=== PATIENT | female | born 1975 | race Caucasian/White ===

== ENCOUNTER 2020-12-07 06:00 | Observation (INO) | payer OTHER, SELFPAY ==
[2020-12-07 06:32] LABS: Absolute Lymphocytes (CBC) 2.4 K/uL (0.7-4.9); Basophils % 0.8 % (0-1.3); Hematocrit 44.1 % (36.0-45.0); Lymphocytes % 17.6 % (15.3-44.8); MPV 9.8 fL (7.6-11.3); RBC Red Blood Cell Count 4.61 M/uL (3.86-4.86)
[2020-12-07 06:46] LABS: Protime INR 1.13
[2020-12-07 06:53] LABS: ALT/SGPT 175 U/L (12-78); AST/SGOT 207 U/L (15-37); Albumin 4.8 g/dL (3.4-5.0); Alkaline Phosphatase 154 U/L (45-117); BUN Blood Urea Nitrogen 30 mg/dL (7-18); Bicarbonate 23 mmol/L (21-32); Bilirubin Direct 0.6 mg/dL (0-0.2); Bilirubin Total 1.6 mg/dL (0.2-1.0); Glucose Level 93 mg/dL (74-106); Potassium 3.2 mmol/L (3.5-5.1); Protein, Total 9.1 g/dL (6.4-8.2); Sodium Level 138 mmol/L (136-145)
[2020-12-07 07:20] LABS: Urine Blood 2+ (Negative); Urine Glucose Negative (Negative); Urine Protein 2+ (Negative); Urine Specific Gravity 1.025 (1.005-1.030)
[2020-12-07 07:33] LABS: Urine Specific Gravity/Preg 1.025 (1.005-1.030)
[2020-12-07 07:44] LABS: Barbiturates NEGATIVE (NEGATIVE); Benzodiazepines NEGATIVE (NEGATIVE); Cocaine NEGATIVE (NEGATIVE); METHAMPHETAM POSITIVE (NEGATIVE); Methadone NEGATIVE (NEGATIVE); Opiates NEGATIVE (NEGATIVE); Phencyclidine NEGATIVE (NEGATIVE); THC Cannibis NEGATIVE (NEGATIVE)
[2020-12-07] MEDS ORDERED: NA CHLORIDE 0.9% 1,000 ML ONE ×3 (07:45→12:48)
[2020-12-07] MEDS ORDERED: NA CHLORIDE 0.9% 0 ML ONE (07:45)
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
--- NOTE | 2020-12-07 08:04 | RAD REPORT ---
EXAM DESCRIPTION: RAD - Forearm Right - 12/07/2020 7:46 am CLINICAL HISTORY: Right arm pain FINDINGS: No fracture is seen.
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
--- NOTE | 2020-12-07 08:07 | RAD REPORT ---
EXAM DESCRIPTION: RAD - Knee Right 3 View - 12/07/2020 7:47 am CLINICAL HISTORY: Right knee pain status post injury FINDINGS: No fracture or dislocation is seen.
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
[2020-12-07] MEDS ORDERED: CEFTRIAXONE/SWI 1gm 1 GM/10 ML SYR ONE (09:23)
[2020-12-07] MEDS ORDERED: LORazepam 2 MG/ML VIAL ONE ×3 (09:23→12:48)
[2020-12-07] MEDS ORDERED: NA CHLORIDE 0.9% 100 ML ONE (09:24)
[2020-12-07] MEDS ORDERED: HYDROCODONE/APAP 5/325 MG TAB PO PRN (12:21)
[2020-12-07] MEDS ORDERED: ACETAMINOPHEN 500 MG TAB PO PRN (12:21)
[2020-12-07] MEDS ORDERED: TRAMADOL HCL 50 MG TAB PO PRN (12:21)
[2020-12-07] MEDS ORDERED: ONDANSETRON 4 MG/2 ML VIAL IV PRN (12:21)
[2020-12-07] MEDS ORDERED: NA CHLORIDE 0.9% 1,000 ML IV SCH ×2 (12:21→14:06)
[2020-12-07] MEDS ORDERED: LORazepam 2 MG/ML VIAL IV PRN ×2 (12:21→12:24)
[2020-12-07 12:50] VITALS: BMI 25.1
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
[2020-12-07] MEDS ORDERED: POTASSIUM CL 40 MEQ in NA CHLORIDE 0.9% 500 ML IV SCH (15:00)
[2020-12-07 17:00] VITALS: TEMP 97.7
[2020-12-07 17:56] LABS: Potassium 3.2 mmol/L (3.5-5.1)
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
--- NOTE | 2020-12-07 20:00 | RAD REPORT ---
EXAM DESCRIPTION: US - Abdomen Exam Complete - 12/07/2020 7:33 pm CLINICAL HISTORY: Abdominal pain COMPARISON: none FINDINGS: The liver has a mildly nodular contour. Left lobe is prominent. This may indicate cirrhosi s. Portions of the liver has an increased echotexture consistent with fatty infiltration Cholecystectomy. The biliary tree is normal caliber. The pancreas is normal in size and echotexture The right kidney measures 10 centimeters with a normal echotexture. The left kidney measures 10 centimeters with a normal echotexture. The spleen measures 10 centimeters. The abdominal aorta and inferior vena cava appear unremarkable IMPRESSION: Increased hepatic echotexture consistent with fatty infiltration. Cirrhosis of the liver suspected
[2020-12-07 20:51] VITALS: O2SAT 99
[2020-12-07] MEDS ORDERED: HEPARIN 5000 UNIT/ML 1 ML VIAL SQ SCH (21:00)
[2020-12-07] MEDS ORDERED: FAMOTIDINE 20 MG TAB PO SCH (21:00)
[2020-12-07 22:33] VITALS: BP 117/69
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
[2020-12-08] MEDS ORDERED: FOLIC ACID 1 MG TABLET PO SCH (09:00)
[2020-12-08] MEDS ORDERED: THIAMINE HCL 100 MG TABLET PO SCH (09:00)
--- NOTE | 2020-12-08 10:48 | EKG ---
Test Date: 2020-12-07 Test Time: 06:09:31 Electrical Installation Supervisor: RR MEASUREMENT RESULTS: Intervals: Rate: 108 [place]: 142 QRSD: 80 QT: 358 QTc: 479 [place]: P: 74 [place]: 142 QRS: 78 T: 76 INTERPRETIVE STATEMENTS: Sinus tachycardia Right atrial enlargement Borderline ECG Compared to ECG 01/29/2017 13:55:25 Atrial abnormality now present Sinus rhythm no longer present Electronically Signed On 12-08-20 10:46:56 CDT by Cassius Walls
[2020-12-11 03:09] LABS: HBsAG Nonreactive (Nonreactive)
[2020-12-11 14:32] LABS: HIV AG/AB 4TH GEN Non-reactive (Non-reactive)
== END 2020-12-07 21:40 | disposition left against medical advice (07) ==
LOC: ER 06:00 → ERHOLD 10:24 → 4TH 14:02
PROVIDERS: ADMIT Family Medicine; ATTEND Family Medicine
DX: T14.8XXA Other injury of unspecified body region, initial encounter (principal); N17.9 Acute kidney failure, unspecified; M62.82 Rhabdomyolysis; G89.29 Other chronic pain; F10.10 Alcohol abuse, uncomplicated; F15.129 Other stimulant abuse with intoxication, unspecified; Z20.822 Contact with and (suspected) exposure to COVID-19; Y04.8XXA Assault by other bodily force, initial encounter; Y92.009 Unspecified place in unspecified non-institutional (private) residence as the place of occurrence of the external cause; Z53.29 Procedure and treatment not carried out because of patient's decision for other reasons; M54.9 Dorsalgia, unspecified; E87.6 Hypokalemia; E83.52 Hypercalcemia; F17.210 Nicotine dependence, cigarettes, uncomplicated
CPT/HCPCS: 36415; 70450; 71250; 72125; 76700; 80048; 80074; 80076; 80307; 80320; 80329; 81003; 81025; 82140; 82550; 83690; 85025; 85302; 85610; 85730; 87389; 87522; 93005; 96361; 96365; 96375; 99285; G0390; J0696; J3480; J7030; J7040; U0003

== ENCOUNTER 2022-05-01 06:29 | Emergency (ER) | payer SELFPAY ==
[2022-05-01 08:54] LABS: Urine Blood Negative (Negative); Urine Glucose Negative (Negative); Urine Protein Negative (Negative)
[2022-05-01 09:03] LABS: Urine Mucus Slight /HPF (None Seen); Urine RBC <5 /HPF (None Seen)
[2022-05-01 09:28] LABS: Barbiturates NEGATIVE (NEGATIVE); Benzodiazepines NEGATIVE (NEGATIVE); Cocaine NEGATIVE (NEGATIVE); METHAMPHETAM POSITIVE (NEGATIVE); Methadone NEGATIVE (NEGATIVE); Opiates NEGATIVE (NEGATIVE); Phencyclidine NEGATIVE (NEGATIVE); THC Cannibis NEGATIVE (NEGATIVE)
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
[2022-05-01 10:13] VITALS: O2SAT 100
[2022-05-01 10:16] VITALS: TEMP 98
[2022-05-01 10:17] VITALS: BP 142/86
--- NOTE | 2022-05-02 16:54 | EKG ---
Test Date: 2022-05-01 Test Time: 06:50:46 Assessment Manager: KARINA MEASUREMENT RESULTS: Intervals: Rate: 93 [place]: 142 QRSD: 84 QT: 392 QTc: 487 [place]: P: 69 NE: 142 QRS: 84 T: 74 INTERPRETIVE STATEMENTS: Normal sinus rhythm with sinus arrhythmia Prolonged QT Abnormal ECG Compared to ECG 12/07/2020 06:09:31 Prolonged QT interval now present Sinus tachycardia no longer present Atrial abnormality no longer present Electronically Signed On 05-02-22 16:53:34 CDT by Rashel Keys
== END 2022-05-01 09:55 | disposition home or self-care (01) ==
LOC: ER 06:29
DX: F23 Brief psychotic disorder (principal); F15.159 Other stimulant abuse with stimulant-induced psychotic disorder, unspecified; F17.210 Nicotine dependence, cigarettes, uncomplicated
CPT/HCPCS: 80307; 81003; 81015; 93005; 99285

== ENCOUNTER 2023-02-20 22:04 | Emergency (ER) | payer OTHER ==
--- OUTSIDE RECORDS SUMMARY | 2023-02-20 22:07 | XMS REPORT | Continuity of Care Document ---
:1975 Author Organization [facility] t Address [address] [place] [address] Care Team Providers Name Role Phone RICARDA SMITH Attending Clinician Unavailable BRANDY INIGUEZ Attending Clinician Unavailable Payers Payer Name Policy Type Policy Number Effective Date Expiration Date [facility] [id number] 2022 [address] [employer] 00:00:00 00:00:00 Problems This patient has no known problems. Allergies, Adverse Reactions, Alerts This patient has no known allergies or adverse reactions. Medications This patient has no known medications. Procedures This patient has no known procedures. Encounters Start End Encounter Admission Attending Care Care Encounter Source Date/Time Date/Time Type Type Clinicians Facility Department ID 2022-09-30 2022-10-01 Emergency [facility]AH [facility] [id number] [place] 04:41:00 08:12:00 RICARDA [facility] 2022-09-30 2022-09-30 [facility] [id number] 54 [place] 11:00:32 11:05:55 BRANDY [facility] 2022-09-30 2022-09-30 [facility] [id number] 34 [place] 08:34:42 08[facility]34:[facility] This patient has no known results.
[2023-02-20] MEDS ORDERED: MORPHINE 2 MG/ML SYR ONE (22:51)
[2023-02-20] MEDS ORDERED: ONDANSETRON 4 MG/2 ML VIAL ONE (22:52)
[2023-02-20 23:11] LABS: Absolute Lymphocytes (CBC) 1.6 K/uL (0.7-4.9); Lymphocytes % 25.5 % (15.3-44.8); MCV 99.7 fL (80-100); Platelets 88 thou/uL (152-406); RBC Red Blood Cell Count 3.51 M/uL (3.86-4.86)
[2023-02-20 23:20] LABS: Albumin 3.5 g/dL (3.4-5.0); Bilirubin Total 1.4 mg/dL (0.2-1.0)
[2023-02-20 23:34] LABS: Specific Gravity 1.022 (1.005-1.030); Urine Bacteria None Seen /HPF (<20); Urine Bilirubin NEGATIVE (Negative); Urine Blood Trace (Negative); Urine Clarity Extremely Turbid (Clear); Urine Color Yellow (Yellow); Urine Crystals Unidentified Few /HPF (None Seen); Urine Glucose NEGATIVE (Negative); Urine Mucus Slight /HPF (None Seen); Urine Protein TRACE (Negative); Urine RBC <5 /HPF (None Seen); Urine Urobilinogen Normal (Normal); Urine WBC Clump Rare /HPF (None Seen); Urine pH 5.5 (5.0-7.0)
[2023-02-20] MEDS ORDERED: POTASSIUM 25 MEQ EFFERV TAB ONE (23:55)
--- NOTE | 2023-02-21 01:27 | EDPHYS ---
Physician Documentation [facility] Name: Geraldine Araiza Age: 47 yrs Sex: Female : 1975 Arrival Date: 02/20/2023 Time: 22:04 Bed Treatment Private MD: ED Physician Araseli Burnham HPI: 02/20 23:38 This 47 yrs old Female presents to ER via EMS with complaints of flank pain. sb4 02/21 15:48 patient states she has some right sided flank pain and dysuria. she does have a history sb4 of kidney stones and wanted to be evaluated to rule it out. she states the flank pain could be a muscle strain and she was working outside all day yesterday. she denies any hematuria, nausea, vomiting, abdominal pain, fever. movement aggravates the pain, remaining still alleviates the pain. Historical: - Allergies: 02/20 22:20 Toradol; kl - PSHx: 22:22 Total abdominal hysterectomy; Cholecystectomy; Appendectomy; kl - Immunization history:: Adult Immunizations not immunized. ROS: 02/21 15:48 Constitutional: Negative for fever, chills, and weight loss. sb4 Back: Positive for flank pain, on the right. : Positive for burning with urination. All other systems are negative. Exam: 15:48 Head/Face: Normocephalic, atraumatic. Cardiovascular: Regular rate and rhythm with a sb4 normal S1 and S2. Respiratory: Lungs have equal breath sounds bilaterally, clear to auscultation and percussion. No rales, rhonchi or wheezes noted. No increased work of breathing, no retractions or nasal flaring. Abdomen/GI: Soft, non-tender, no distension. Skin: Warm, dry with normal turgor. Normal color with no rashes, no lesions, and no evidence of cellulitis. MS/ Extremity: Pulses equal, no cyanosis. Neurovascular intact. Full, normal range of motion. 15:48 Constitutional: The patient appears alert, awake, uncomfortable, intoxicated Vital Signs: 02/20 22:33 BP 140 / 86; Pulse 82; Resp 18; Temp 98.6(O); Pulse Ox 98% on R/A; Weight 63.5 kg; kl Height 5 ft. 6 in. ; Pain /10; 02/21 01:04 BP 128 / 77; Pulse 80; Resp 18 S; Pulse Ox 97% on R/A; kl 02:08 BP 127 / 53; kl 02:09 Pulse 94; Resp 20; Pulse Ox 98% on R/A; kl 02/20 22:33 Body Mass Index 22.60 (63.50 kg, 167.64 cm) kl 02/20 22:33 Pain Scale: Adult kl MDM: 02/20 22:16 Patient medically screened. sb4 02/21 15:48 Differential Diagnosis nephrolithiasis, uti, pyelonephritis, muscle strain. Data sb4 reviewed: vital signs, nurses notes, lab test result(s), radiologic studies, and as a result, I will discharge patient. Counseling: I had a detailed discussion with the patient and/or guardian regarding: the historical points, exam findings, and any diagnostic results supporting the discharge/admit diagnosis, the presence of at least one elevated blood pressure reading (>120/80) during this emergency department visit, lab results, radiology results, to return to the emergency department if symptoms worsen or persist or if there are any questions or concerns that arise at home. Special discussion: I discussed with the patient/guardian in detail that at this point there is no indication for admission to the hospital. It is understood, however, that if the symptoms persist or worsen the patient needs to return immediately for re-evaluation. ED course: labs reveal mildly elevated LFTs. she does have a history of hepatitis C and methamphetamine abuse. she has no abdominal tenderness on exam and CT did not reveal any abnormalities. patient can be safely discharged home to follow up for repeat labs in a few weeks. 02/20 22:18 Order name: CBC with Diff; Complete Time: 23:14 sb4 02/20 22:18 Order name: CMP; Complete Time: 23:21 sb4 02/20 22:18 Order name: Lipase; Complete Time: 23:21 sb4 02/20 22:58 Order name: Urinalysis w/ reflexes; Complete Time: 23:37 kl 02/20 23:39 Order name: Urine Culture EDCA 02/20 23:48 Order name: Abdomen EDCA 02/20 22:18 Order name: IV Saline Lock; Complete Time: 22:37 sb4 02/20 22:18 Order name: Labs collected and sent; Complete Time: 23:37 sb4 Administered Medications: 02/20 22:37 Drug: NS 0.9% IV 1000 ml Route: IV; Rate: 1 bolus; Site: right antecubital; kl 22:45 Drug: morphine IVP or IV 4 mg Route: IVP; Infused Over: 4 mins; Site: right antecubital;kl 22:49 Drug: Ondansetron IVP 4 mg Route: IVP; Site: right antecubital; kl 23:49 Drug: Potassium PO Effervescent Tablet 50 mEq Route: PO; kl 02/21 00:57 Drug: NS 0.9% IV 1000 ml Route: IV; Rate: 1 bolus; Site: right antecubital; Disposition Summary: 02/21/23 01:26 Discharge Ordered Location: Home sb4 Problem: new sb4 Symptoms: are unchanged sb4 Condition: Stable sb4 Diagnosis - UTI/ Urinary tract infection, site not specified sb4 Followup: sb4 - With: Private Physician - When: As needed - Reason: Recheck today's complaints, Continuance of care, Re-evaluation by your physician Discharge Instructions: - Discharge Summary Sheet sb4 - Urinary Tract Infection, Adult, [id number] sb4 Forms: - Medication Reconciliation Form sb4 - Thank You Letter sb4 - Antibiotic Education sb4 - Prescription Opioid Use sb4 - Patient Portal Instructions sb4 - Leadership Thank You Letter sb4 Prescriptions: - Bactrim DS 800-160 mg Oral Tablet - take 1 tablet by ORAL route every 12 hours for 10 days; 20 tablet; Refills: 0, sb4 Product Selection Permitted Signatures: Dispatcher [employer] Heather Casey RN RN Sheryl Ma PA-C PACindy sb4 Corrections: (The following items were deleted from the chart) 02/20 22:21 22:20 Allergies: NKA; kl kl 22:21 22:20 PMHx: bone spurt; kl kl 23:48 22:18 Abdomen Pelvis W Con+CT.RAD.BRZ ordered. EDMS EDMS
--- NOTE | 2023-02-21 01:27 | ER ---
Nurse's Notes [facility] Name: Geraldine Araiza Age: 47 yrs Sex: Female : 1975 Arrival Date: 02/20/2023 Time: 22:04 Bed Treatment Private MD: Diagnosis: UTI/ Urinary tract infection, site not specified Presentation: 02/20 22:33 Chief complaint: Patient states: right flank pain began approx 2 PM reports burning kl with urination. Coronavirus screen: Vaccine status: Patient reports being unvaccinated. Ebola Screen: Patient negative for fever greater than or equal to 101.5 degrees Fahrenheit, and additional compatible Ebola Virus Disease symptoms. Initial Sepsis Screen: Does the patient meet any 2 criteria? No. Patient's initial sepsis screen is negative. Does the patient have a suspected source of infection? No. Patient's initial sepsis screen is negative. Risk Assessment: Do you want to hurt yourself or someone else? Patient reports no desire to harm self or others. 22:33 Method Of Arrival: EMS: [facility] 22:33 Acuity: [place] 3 kl Triage Assessment: 22:34 General: Appears in no apparent distress. comfortable, Behavior is calm, cooperative. kl Pain: Complains of pain in right flank. EENT: No deficits noted. Neuro: No deficits noted. Cardiovascular: No deficits noted. Respiratory: No deficits noted. GI: No deficits noted. No signs and/or symptoms were reported involving the gastrointestinal system. : Reports burning with urination. Derm: No deficits noted. No signs and/or symptoms reported regarding the dermatologic system. Musculoskeletal: No deficits noted. No signs and/or symptoms reported regarding the musculoskeletal system. Historical: - Allergies: 22:20 Toradol; kl - PSHx: 22:22 Total abdominal hysterectomy; Cholecystectomy; Appendectomy; kl - Immunization history:: Adult Immunizations not immunized. Screenin:35 [facility] ED Fall Risk Assessment (Adult) History of falling in the last 3 months, kl including since admission No falls in past 3 months (0 pts) Confusion or Disorientation No (0 pts) Intoxicated or Sedated No (0 pts) Impaired Gait No (0 pts) Mobility Assist Device Used No (0 pt) Altered Elimination No (0 pt) Score/Fall Risk Level 0 - 2 = Low Risk Oriented to surroundings, Maintained a safe environment. Abuse screen: Denies threats or abuse. Nutritional screening: No deficits noted. Tuberculosis screening: No symptoms or risk factors identified. Assessment: 22:35 Reassessment: see triage. 02/21 02:09 Reassessment: Patient appears in no apparent distress at this time. Patient denies pain kl at this time. Patient states feeling better. Patient states symptoms have improved. Vital Signs: 02/20 22:33 BP 140 / 86; Pulse 82; Resp 18; Temp 98.6(O); Pulse Ox 98% on R/A; Weight 63.5 kg; kl Height 5 ft. 6 in. ; Pain 6/; 02/21 01:04 BP 128 / 77; Pulse 80; Resp 18 S; Pulse Ox 97% on R/A; kl 02:08 BP 127 / 53; kl 02:09 Pulse 94; Resp 20; Pulse Ox 98% on R/A; kl 02/20 22:33 Body Mass Index 22.60 (63.50 kg, 167.64 cm) kl 02/20 22:33 Pain Scale: Adult kl ED Course: 02/20 22:16 Patient arrived in ED. sb4 22:16 Sheryl Cano PA-C is PHCP. sb4 22:16 Araseli Burnham MD is Attending Physician. sb4 22:34 Triage completed. kl 22:36 Patient has correct armband on for positive identification. Placed in gown. Call light kl in reach. Side rails up X2. Door closed. Noise minimized. Warm blanket given. 22:36 No provider procedures requiring assistance completed. Maintain EMS IV. Dressing kl intact. Good blood return noted. Site clean \T\ dry. Gauge \T\ site: 20 right ac. 22:49 CBC with Diff Sent. kl 22:49 CMP Sent. kl 22:49 Lipase Sent. kl 23:17 Urinalysis w/ reflexes Sent. kl 02/21 00:24 Abdomen In Process Unspecified. EDMS 01:03 No apparent distress. Resting quietly. Appears to be sleeping. kl 02:09 IV discontinued, intact, bleeding controlled, No redness/swelling at site. Pressure kl dressing applied. Administered Medications: 02/20 22:37 Drug: NS 0.9% IV 1000 ml Route: IV; Rate: 1 bolus; Site: right antecubital; kl 22:45 Drug: morphine IVP or IV 4 mg Route: IVP; Infused Over: 4 mins; Site: right antecubital; 22:49 Drug: Ondansetron IVP 4 mg Route: IVP; Site: right antecubital; kl 23:49 Drug: Potassium PO Effervescent Tablet 50 mEq Route: PO; kl 02/21 00:57 Drug: NS 0.9% IV 1000 ml Route: IV; Rate: 1 bolus; Site: right antecubital; Medication: 02/20 22:35 VIS not applicable for this client. kl Outcome: 02/21 01:26 Discharge ordered by MD. dewey 02:09 Discharged to home ambulatory. kl 02:09 Condition: improved 02:09 Discharge instructions given to patient, Instructed on discharge instructions, follow up and referral plans. medication usage, Demonstrated understanding of instructions, follow-up care, medications, Prescriptions given X 1. 02:10 Patient left the ED. Signatures: Dispatcher [employer] EDHeather Pope RN RN kl Brown, Sophia PA-C TRAVIS sellers4 Corrections: (The following items were deleted from the chart) 02/20 22:21 22:20 Allergies: NKA; kl kl 22:21 22:20 PMHx: bone spurt; kl kl
[2023-02-21 02:15] VITALS: TEMP 98.6
[2023-02-21 02:17] VITALS: BP 127/53
[2023-02-21 02:18] VITALS: O2SAT 98
--- NOTE | 2023-02-22 12:38 | RAD REPORT ---
EXAM DESCRIPTION: CT - Abdomen Pelvis Wo Contrast - 02/21/2023 7:05 am CLINICAL HISTORY: ABD PAIN TECHNIQUE: Axial computed tomography images of the abdomen and pelvis without intravenous contrast. Sagittal and coronal reformatted images were created and reviewed. This CT exam was performed usi ng one or more of the following dose reduction techniques: automated exposure control, adjustment o f the mA and/or kV according to patient size, and/or use of iterative reconstruction technique. COMPARISON: CT Abdomen Pelvis dated 12/07/2020 FINDINGS: Lung bases: Minimal bibasilar subsegmental atelectasis/pleural parenchymal scar. ABDOMEN: Liver: The liver is enlarged with surface contour nodularity compatible with cirrhosis. Gallbladder and bile ducts: Prior cholecystectomy. Mild ductal dilation. Pancreas: Unremarkable. No ductal dilation. Spleen: Unremarkable. No splenomegaly. Adrenals: Unremarkable. No mass. Kidneys and ureters: Unremarkable. No obstructing stones. No hydronephrosis. Stomach and bowel: Small and large bowel air-fluid levels. No obstruction. No appreciable mucos al thickening. PELVIS: Appendix: There has been an appendectomy. Bladder: Unremarkable. No stones. Reproductive: There has been a hysterectomy. No adnexal cysts or masses are identified. ABDOMEN and PELVIS: Intraperitoneal space: Unremarkable. No free air. No significant fluid collection. Bones/joints: Mild multilevel spondylosis. No acute fracture. No dislocation. Soft tissues: Unremarkable. Vasculature: Unremarkable. No abdominal aortic aneurysm. Lymph nodes: Unremarkable. No enlarged lymph nodes. IMPRESSION: 1. Nonspecific small and large bowel air-fluid levels which can be seen in the clinica l setting of diarrhea. 2. Other findings as above. Electronically signed by: Jackie Lind MD 02/21/2023 1:17 AM CDT Due to temporary technical issues with the PACS/Fluency reporting system, reports are being signed by the in house radiologist without review as a courtesy to ensure prompt reporting. The interpreting r adiologist is fully responsible for the content of the report.
== END 2023-02-21 02:10 | disposition home or self-care (01) ==
LOC: ER 22:04
DX: N39.0 Urinary tract infection, site not specified (principal); Z88.5 Allergy status to narcotic agent
CPT/HCPCS: 87088; 85025; 81001; 87086; 36415; 83690; 80053; 74176; 96375; 96374; 99284; J2270; J2405

== ENCOUNTER 2023-05-17 14:03 | Emergency (ER) | payer OTHER ==
--- OUTSIDE RECORDS SUMMARY | 2023-05-17 14:05 | XMS REPORT | Continuity of Care Document ---
:1975 Author Organization [facility] t Address [address] [place] [address] Care Team Providers Name Role Phone RICARDA SMITH Attending Clinician Unavailable BRANDY INIGUEZ Attending Clinician Unavailable Payers Payer Name Policy Type Policy Number Effective Date Expiration Date [facility] [id number] 2022 [address] [employer] 00:00:00 00:00:00 Problems This patient has no known problems. Allergies, Adverse Reactions, Alerts This patient has no known allergies or adverse reactions. Medications This patient has no known medications. Procedures This patient has no known procedures. Encounters Start End Encounter Admission Attending Care Care Encounter Source Date/Time Date/Time Type Type Clinicians Facility Department ID 2022-09-30 2022-10-01 Emergency SARAH [facility] [id number] [place] 04:41:00 08:12:00 RICARDA [facility] 2022-09-30 2022-09-30 [facility] [id number] [place] 11:00:32 11:05:55 BRANDY [facility] 2022-09-30 2022-09-30 [facility] [id number] [place] 08:34:42 [facility] This patient has no known results.
--- NOTE | 2023-05-17 15:43 | RAD REPORT ---
EXAM DESCRIPTION: CT - CTFB CLINICAL HISTORY: Trauma;Swelling COMPARISON: No comparisons TECHNIQUE: Axial thin cut noncontrast CT images of the face were obtained with sagittal and coronal reconstruction images. All CT scans are performed using dose optimization technique as appropriate and may include automated exposure control or mA/KV adjustment according to patient size. FINDINGS: Left orbital floor comminuted fracture, measuring 12 millimeter in transverse dimension an d 18 millimeter in AP dimension. A fracture fragment abuts the inferior rectus muscle inferiorly with some gas locules extending along the retro coronal fat space, however without significant thickening or contour abnormality of the inferior rectus muscle. Left infraorbital soft tissue swelling and gas without evidence of hematoma. No other acute facial fractures.The mandible is intact. The globes and orbital contents on the right are unremarkable. Left maxillary sinus air-fluid level with hyperdense contents suggesting layering hemorrhage. IMPRESSION: Left orbital blow-out fracture as detailed above. A small fracture fragment abuts the inferior rectus muscle inferiorly with no other evidence of conto ur abnormality or asymmetric thickening of the muscle to suggest muscle entrapment. Small gas locules extending along the left retro conal fat space. No evidence of hematoma. Left maxillary sinus hemorrhage with air-fluid level. The findings were communicated to Elba Aguiar on 05/17/2023 at 15:39 hours.
--- NOTE | 2023-05-17 15:52 | EDPHYS ---
Physician Documentation [facility] Name: Geraldine Araiza Age: 47 yrs Sex: Female : 1975 Arrival Date: 05/17/2023 Time: 14:03 Bed 11 Private MD: ED Physician Zohaib Padron HPI: 05/17 14:10 This 47 yrs old Female presents to ER via Ambulatory with complaints of Fall Injury. jh7 14:10 Details of fall: The patient fell from an upright position, while walking. Onset: The jh7 symptoms/episode began/occurred 2 day(s) ago. Associated injuries: The patient sustained face. Ending on her [id number] female tripped over her dog 2 days ago. She denies LOC and is not on blood thinners. Complains of a nosebleed from the left nostril with bruising under her left eye.. Historical: - Allergies: 14:12 Toradol; iw - PSHx: 14:12 Appendectomy; Cholecystectomy; Total abdominal hysterectomy; iw ROS: 14:10 Constitutional: Negative for fever, chills, and weight loss, Eyes: Negative for injury, jh7 pain, redness, and discharge, 14:10 Neck: Negative for injury, pain, and swelling, Cardiovascular: Negative for chest pain, palpitations, and edema, Respiratory: Negative for shortness of breath, cough, wheezing, and pleuritic chest pain, Abdomen/GI: Negative for abdominal pain, nausea, vomiting, diarrhea, and constipation, Back: Negative for injury and pain, MS/Extremity: Negative for injury and deformity, Skin: Negative for injury, rash, and discoloration, Neuro: Negative for headache, weakness, numbness, tingling, and seizure, 14:10 ENT: Positive for nose bleed, 14:10 All other systems are negative, Exam: 14:10 Constitutional: This is a well developed, well nourished patient who is awake, alert, jh7 and in no acute distress. Eyes: Pupils equal round and reactive to light, extra-ocular motions intact. Lids and lashes normal. Conjunctiva and sclera are non-icteric and not injected. Cornea within normal limits. Periorbital areas with no swelling, redness, or edema. ENT: Nares patent. No nasal discharge, no septal abnormalities noted. Tympanic membranes are normal and external auditory canals are clear. Oropharynx with no redness, swelling, or masses, exudates, or evidence of obstruction, uvula midline. Mucous membranes moist. Neck: Trachea midline, no thyromegaly or masses palpated, and no cervical lymphadenopathy. Supple, full range of motion without nuchal rigidity, or vertebral point tenderness. No Meningismus. Cardiovascular: Regular rate and rhythm with a normal S1 and S2. No gallops, murmurs, or rubs. Normal PMI, no JVD. No pulse deficits. Respiratory: Lungs have equal breath sounds bilaterally, clear to auscultation and percussion. No rales, rhonchi or wheezes noted. No increased work of breathing, no retractions or nasal flaring. Back: No spinal tenderness. No costovertebral tenderness. Full range of motion. Skin: Warm, dry with normal turgor. Normal color with no rashes, no lesions, and no evidence of cellulitis. MS/ Extremity: Pulses equal, no cyanosis. Neurovascular intact. Full, normal range of motion. Neuro: Awake and alert, GCS 15, oriented to person, place, time, and situation. Motor strength 5/5 in all extremities. Sensory grossly intact. Normal gait. 14:10 Head/face: Noted is contusion, of the left eye, Vital Signs: 14:10 BP 123 / 96; Pulse 87; Resp 16; Temp 98.3; Pulse Ox 98% on R/A; iw 15:37 BP 133 / 82; Pulse 77; Resp 16 S; Pulse Ox 98% on R/A; kc6 Visual Acuity: 15:49 Left Eye Visual acuity 20/70, Pupil size 3 mm, Normal, React To Light, Reactive To kc6 Accomodation; Right Eye Visual acuity 20/40, Pupil size 3 mm, Normal, React To Light, Reactive To Accomodation; Both Eyes Visual acuity 20/50; Without Lenses; MDM: 14:09 Patient medically screened. [facility] 15:50 Differential diagnosis: closed head injury, contusion, Facial fracture, orbital jh7 fracture, periorbital contusion. Data reviewed: vital signs, nurses notes, radiologic studies, CT scan. I considered the following discharge prescriptions or medication management in the emergency department Medications were administered in the Emergency Department. See MAR. Counseling: I had a detailed discussion with the patient and/or guardian regarding the historical points, exam findings, and any diagnostic results supporting the discharge/admit diagnosis, the need for outpatient follow up, an ENT specialist, an oral maxilofacial specialist, to return to the emergency department if symptoms worsen or persist or if there are any questions or concerns that arise at home. 05/17 14:13 Order name: CT Facial Bones W/O Con; Complete Time: 15:47 [facility] 05/17 15:46 Order name: Visual Acuity; Complete Time: 15:50 [facility] Administered Medications: No medications were administered Disposition Summary: 05/17/23 15:51 Discharge Ordered Notes: Location: Home [facility] Problem: new [facility] Symptoms: have improved [facility] Condition: Stable [facility] Diagnosis - Left orbital blowout fracture [facility] Followup: [facility] - With: Yanet Squires MD - When: 2 - 3 days - Reason: Recheck today's complaints Discharge Instructions: - Discharge Summary Sheet [facility] - Orbital Fracture [facility] Forms: - Medication Reconciliation Form [facility] - Thank You Letter [facility] - Antibiotic Education [facility] - Prescription Opioid Use [facility] - Patient Portal Instructions [facility] - Leadership Thank You Letter [facility] Prescriptions: - Augmentin 875-125 mg Oral tablet - take 1 tablet ORAL route every 12 hours for 7 days; 14 tablet; Refills: 0, [facility] Product Selection Permitted - Tramadol 50 mg Oral Tablet - take 1 tablet ORAL route every 8 hours as needed; 12 tablet; Refills: 0, [facility] Product Selection Permitted Addendum: 05/22/2023 07:49 I was immediately available for consultation during this patient's visit. I did not e c2 personally see the patient or guide the patient's care.. Signatures: Dispatcher [employer] Carlyn Flores, RN RN Elba Shore, ACCOUNT MANAGER RELIEF ACCOUNT MANAGER RELIEF 7 Zohaib Padron MD MD ec2
--- NOTE | 2023-05-17 15:52 | ER ---
Nurse's Notes [facility] [place] Name: Geraldine Araiza Age: 47 yrs Sex: Female : 1975 Arrival Date: 05/17/2023 Time: 14:03 Bed 11 Private MD: Diagnosis: Left orbital blowout fracture Presentation: 05/17 14:10 Chief complaint: Patient states: tripped over dog a couple days ago, fell face first iw into concrete, now when i blow my nose there's blood and it swells up under my eye , fell on left side of face. Coronavirus screen: At this time, the client does not indicate any symptoms associated with coronavirus-19. Ebola Screen: Patient negative for fever greater than or equal to 101.5 degrees Fahrenheit, and additional compatible Ebola Virus Disease symptoms Patient denies exposure to infectious person. Patient denies travel to an Ebola-affected area in the 21 days before illness onset. No symptoms or risks identified at this time. Initial Sepsis Screen: Does the patient meet any 2 criteria? No. Patient's initial sepsis screen is negative. Does the patient have a suspected source of infection? No. Patient's initial sepsis screen is negative. Risk Assessment: Do you want to hurt yourself or someone else? Patient reports no desire to harm self or others. Onset of symptoms was May 15, 2023. 14:10 Method Of Arrival: Ambulatory 14:10 Acuity: GERHARD 3 iw Historical: - Allergies: 14:12 Toradol; iw - PSHx: 14:12 Appendectomy; Cholecystectomy; Total abdominal hysterectomy; iw Screenin:22 [facility] ED Fall Risk Assessment (Adult) History of falling in the last 3 months, kc6 including since admission Yes- single mechanical fall (1 pt) Confusion or Disorientation No (0 pts) Intoxicated or Sedated No (0 pts) Impaired Gait No (0 pts) Mobility Assist Device Used No (0 pt) Altered Elimination No (0 pt) Score/Fall Risk Level 0 - 2 = Low Risk. Abuse screen: Denies threats or abuse. Denies injuries from another. Nutritional screening: No deficits noted. Tuberculosis screening: No symptoms or risk factors identified. Assessment: 14:23 General: Appears in no apparent distress. comfortable, Behavior is calm, cooperative, kc6 appropriate for age. Neuro: Level of Consciousness is awake, alert, obeys commands, Oriented to person, place, time, situation, Appropriate for age. Cardiovascular: Denies chest pain, Capillary refill < 3 seconds. Respiratory: Airway is patent Trachea midline Respiratory effort is even, unlabored, Respiratory pattern is regular, symmetrical, Denies shortness of breath. Derm: Skin is intact, is healthy with good turgor, Skin is pink, warm \T\ dry. 15:23 Reassessment: Patient appears in no apparent distress at this time. No changes from kc6 previously documented assessment. Patient and/or family updated on plan of care and expected duration. Pain level reassessed. Patient is alert, oriented x 3, equal unlabored respirations, skin warm/dry/pink. Vital Signs: 14:10 BP 123 / 96; Pulse 87; Resp 16; Temp 98.3; Pulse Ox 98% on R/A; iw 15:37 BP 133 / 82; Pulse 77; Resp 16 S; Pulse Ox 98% on R/A; kc6 Visual Acuity: 15:49 Left Eye Visual acuity 20/70, Pupil size 3 mm, Normal, React To Light, Reactive To kc6 Accomodation; Right Eye Visual acuity 20/40, Pupil size 3 mm, Normal, React To Light, Reactive To Accomodation; Both Eyes Visual acuity 20/50; Without Lenses; ED Course: 14:05 Patient arrived in ED. mg5 14:09 Elba Boo FNP [facility]. jh7 14:09 Zohaib Padron MD is Attending Physician. jh7 14:12 Triage completed. iw 14:12 Arm band placed on. iw 14:22 Brianda Olivarez, TEVIN is Primary Nurse. kc6 14:23 CT Facial Bones W/O Con In Process Unspecified. EDMS 14:23 Patient has correct armband on for positive identification. Bed in low position. Call kc6 light in reach. Side rails up X2. Adult w/ patient. Client placed on continuous cardiac and pulse oximetry monitoring. NIBP monitoring applied. 14:23 Patient maintains SpO2 saturation greater than 95% on room air. kc6 15:51 Yanet Squires MD is Referral Physician. 7 16:04 No provider procedures requiring assistance completed. Patient did not have IV access kc6 during this emergency room visit. Administered Medications: No medications were administered Medication: 16:04 VIS not applicable for this client. kc6 Outcome: 15:51 Discharge ordered by . aury 16:04 Discharged to home ambulatory, with significant other, kc6 16:04 Condition: good 16:04 Discharge instructions given to patient, Instructed on discharge instructions, follow up and referral plans. medication usage, Demonstrated understanding of instructions, follow-up care, medications, Prescriptions given X 2, 16:04 Patient left the ED. kc6 Signatures: Dispatcher [employer] Carlyn Flores, RN RN Elba Shore, COOKER SULFITE COOKER SULFITE Brianda Guerrier RN RN Edwina Wiseman mg5
[2023-05-17 16:08] VITALS: TEMP 98.3; O2SAT 98
[2023-05-17 16:10] VITALS: BP 133/82
== END 2023-05-17 16:04 | disposition home or self-care (01) ==
LOC: ER 14:03
DX: S02.32XA Fracture of orbital floor, left side, initial encounter for closed fracture (principal); Z88.5 Allergy status to narcotic agent
CPT/HCPCS: 70486; 76377; 99284

== ENCOUNTER 2023-12-22 08:30 | Emergency (ER) | payer OTHER ==
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
[2023-12-22 11:09] VITALS: TEMP 97; O2SAT 98
[2023-12-22 11:28] VITALS: BP 128/80
== END 2023-12-22 11:04 | disposition home or self-care (01) ==
LOC: ER 08:30
DX: S20.211A Contusion of right front wall of thorax, initial encounter (principal); M54.50 Low back pain, unspecified
CPT/HCPCS: 99283

== ENCOUNTER 2025-03-27 02:07 | Emergency (ER) | payer OTHER ==
--- OUTSIDE RECORDS SUMMARY | 2025-03-27 02:15 | XMS REPORT | Continuity of Care Document ---
Author Name Unknown Address [address] [facility] [address] [place] [address] [facility] Address [address] [facility] [address] [place] [address] Care Team Providers Care Assembler [employer] Name Role Phone CHRISTINE VERAS Primary Care Physician Unavailab ИРИНА Padilla Attending Clinician Unavailable DIEUDONNE CINTRON Attending Clinician Unavailable MD NICHELLE Attending Clinician Unavailab le LAB90 Attending Clinician Unavailable CUCA MONTANEZ Attending Clinician Unavailable ALOK MERIDA Attending Clinician Unavailable ERA ALLISON Attending Clinician Unavailable JONH PHILLIPS Attending Clinician Unavailable LAB39 Attending Clinician Unavailable AKSHAT CRUZ Attending Clinician UnavailCHRISTINE Rinaldi Attending Clinician Unavailable ADRIAN GUTIERREZ Attending Clinician Unavailable RICARDA SARMIENTO Attending Clinician Unavailable NITIN BOOTH Attending Clinician UnavailEMORY Rainey Attending Clinician Unavailable CESAR RUSSELL Attending Clinician Unavail able JACQUELYN STILL Attending Clinician Unavailable [facility] Attending Clinician Unavailable BK PORTER Attending Clinician Unavailable CESAR RUSSELL Attending Clinician UnavailFABY Greer Attending Clinician Unavailable LAB47 Attending Clinician Unavailable COLE ARREOLA Attending Clinician Unavailable COLE ARREOLA Attending Clinician Unavailable LEI CONRAD Attending Clinician Unavailable DRE CORTEZ Attending Clinician Unavailable LYNN PRAJAPATI Attending Clinician UnavailAG Pickens Attending Clinician Unavailable TAMELA PORRAS Attending Clinician Unavailable TOBI JACKSON Attending Clinician Unavailable RICARDA SMITH Attending Clinician Unavailable BRANDY INIGUEZ Attending Clinician UnavailEMORY Rainey Admitting Clinician Unavailable NITIN BOOTH Admitting Clinician UnavailCOLE Campuzano Admitting Clinician Unavailable Payers Payer Name Policy Type Policy Number Effective Date Expirati on Date Source [facility] 3 ADVANCED 9 [id number] 2024 00:00:00 [employer] CY[employer] PLAN [id number] 2024-07-12 00:00:00 [employer] Marybeth/ CYNDI FARIA [id number] 2023-07-12 00:00:00 Dragon[employer] List [facility] Inductly [id number] 2022-07-12 00:00:00 2078-07-11 00:00:00 Problems Condition Name Condition Details Condition Category Status Onset Date Resolution Date Last Treatment Date Treating Clinician Comments Source Alcoholic cirrhosis of liver without ascites (multi HCC) Alcoholic cirrhosis of liver without ascites (multi HCC) Disease Active 02-07 00:00: 00 Cyndi Seybold - Externa l Chronic thumb pain, bilateral Chronic thumb pain, bilateral Disease Active 02-07 00:00: 00 Cyndi Seybold - Externa l Insomnia Insomnia Disease Active 02-07 00:00: 00 Cyndi Seybold - Externa l Alcohol abuse Alcohol abuse Disease Active 02-07 00:00: 00 Cyndi Seybold - Externa l Heavy tobacco smoker >10 cigarettes per day Heavy tobacco smoker >10 cigarettes per day Disease Active 02-07 00:00: 00 Cyndi Seybold - Externa l Chronic hepatitis C without hepatic coma (multi HCC) Chronic hepatitis C without hepatic coma (multi HCC) Disease Active 02-07 00:00: 00 Cyndi Seybold - Externa l Swelling of both wrists Swelling of both wrists Disease Active 6-14 00:00: 00 Cyndi Faria - Externa ana Thrombocyt openia Thrombocyt openia Disease Active 2-15 00:00: 00 Cyndi Faria - Externa ana Rib pain on right side Rib pain on right side Disease Resolve d 6-14 00:00: 00 2024-02-08 00:00:00 2024-02-08 14:21:16 Cyndi Villatoro Externa ana Encounter for screening for lipid disorder Encounter for screening for lipid disorder Disease Resolve d 2-14 00:00: 00 2024-02-08 00:00:00 2024-02-08 16:24:04 Cyndi Faria - Externa ana Allergies, Adverse Reactions, Alerts Allergy Name Allergy Type Status Severity Reaction(s) Onset Date Inactive Date Treating Clinician Comments Source Ketorola c Propensi ty to adverse reaction s Active Other 02-01 00:00: 00 Migraine and hives Cyndi Villatoro Externa ana GABAPENT IN DRUG INGREDI Active Other-Cmnt 02-01 00:00: 00 [facility] KETOROLA C DRUG INGREDI Active Other-Cmnt 02-01 00:00: 00 [facility] Ketorola c Propensi ty to adverse reaction s Active Other - See comments 02-01 00:00: 00 Migraine and hives [facility] Gabapent in Propensi ty to adverse reaction s Active Other - See comments 02-01 00:00: 00 stutter [facility] Ketorola c Trometha mine Propensi ty to adverse reaction s Active Hives, Nausea and Vomiting 2022-07 00:00: 00 Cyndi Alcaraza ana KETOROLA C Allergy Active High Hives 09-30 00:00: 00 [facility] Social History Social Habit Start Date Stop Date Quantity Comments Source Sexual orientation 2025-01-27 10:27:53 Heterosexual (finding) Cyndi Villatoro External Gender identity 2025-01-27 10:27:53 Identifies as female gender (finding) Cyndi Faria - External ASSERTION Not Cyndi Faria - External History of tobacco use Cigarette Smoker Cyndi johnston - External Alcoholic beverage intake 2025-02-15 00:00:00 2025-02-15 00:00:00 12 /d Cyndi Faria - External Cigarettes smoked current (pack per day) - Reported 2024-02-08 00:00:00 2024-02-08 00:00:00 Cyndi Faria - External Cigarette pack-years 2024-02-08 00:00:00 2024-02-08 00:00:00 Cyndi Faria - External Tobacco use and exposure 2024-02-08 00:00:00 2024-02-08 00:00:00 Smokeless tobacco non-user Cyndi Faria - External Alcohol intake 2023-08-27 00:00:00 2023-08-27 00:00:00 12 /d Cyndi Faria - External Sex 2023-05-18 15:22:39 2023-05-18 15:22:39 Female (finding) Cyndi Faria - External History of Social function 2023-05-18 00:00:00 2023-05-18 00:00:00 Cyndi Faria - External Alcohol Comment 2023-05-18 00:00:00 2023-05-18 00:00:00 12 beers a day Cyndi Faria - External Sex assigned at 1975 00:00:00 1975 00:00:00 [facility] Smoking Status Start Date Stop Date Source Tobacco smoking consumption unknown [facility] Smokes tobacco daily 2024-02-08 00:00:00 Cyndi Faria - External Medications Ordered Medication Name Filled Medication Name Start Date Stop Date Current Medication? Ordering Clinician Indication Dosage Frequency Signature (SIG) Comments Components Source Nitrofurant oin Monohyd Macro (Macrobid) 100 MG oral Capsule Nitrofurant oin Monohyd Macro (Macrobid) 100 MG oral Capsule 02-15 00:00: 00 Yes [id number] 100mg Q.5D Take 1 capsule (100 mg total) by mouth 2 times daily. Cyndi Faria - Externa l Gabapentin 300 MG oral Capsule Gabapentin 300 MG oral Capsule 8-04 00:00: 00 Yes [id number] 9100 300mg Q.13747932 [id number] 3D TAKE 1 CAPSULE BY MOUTH THREE TIMES A DAY Cyndi perez methylPREDN ISolone Acetate 20 mg injection 11-29 09:42: 47 No [id number] 23397 20mg Cyndi perez methylPREDN ISolone Acetate 20 mg injection 11-29 09:42: 47 No [id number] 20mg 20 mg, Physician Administer ed, ONCE, 1 dose, On Wed11/28/24 at 1200 Cyndi perez methylPREDN ISolone Acetate 20 mg injection 11-28 11:58: 47 Yes [id number] 20036 20mg Cyndi perez Methocarbam ol 750 MG oral Tablet 30 00:00: 00 Yes [id number] 750mg Q.25D Take 1 tablet (750 mg total) by mouth 4 times daily as needed (muscle spasm). Cyndi perez Tramadol HCl (ULTRAM) 50 MG oral Tablet -25 00:00: 00 Yes 50mg Q.25D Take 1 tablet (50 mg total) by mouth every 6 hours as needed FOR PAIN. Cyndi perez Gabapentin 300 MG oral Capsule 4-09 00:00: 00 Yes [id number] 9100 300mg Q.30541143 [id number] 3D TAKE 1 CAPSULE BY MOUTH THREE TIMES A DAY Cyndi perez Gabapentin 300 MG oral Capsule 3-14 00:00: 00 Yes [id number] 9100 300mg Q.24258271 [id number] 3D Take 1 capsule (300 mg total) by mouth 3 times daily. Cyndi perez Trazodone HCl 100 MG oral Tablet 2-28 00:00: 00 Yes [id number] 100mg QD TAKE 1 TABLET BY MOUTH EVERY DAY AT NIGHT Cyndi perez Nitrofurant oin Monohyd Macro (Macrobid) 100 MG oral Capsule - 00:00: 00 11-28 00:00 :00 No [id number] 100mg Q.5D Take 1 capsule (100 mg total) by mouth 2 times daily. Cyndi perez Phenazopyri dine HCl (Pyridium) 100 MG oral Tablet 2-28 00:00: 00 11-28 00:00 :00 No 100mg Q.[id number] 3D Take 1 tablet (100 mg total) by mouth 3 times daily as needed for pain. Cyndi peerz Esomeprazol e Magnesium (NexIUM) 40 MG oral Delayed Release Capsule 2- 00:00: 00 Yes 40mg Q.5D Take 1 capsule (40 mg total) by mouth 2 times daily. Cyndi perez Methylpredn isolone Acetate (Depo-Medro l) 40 mg/ml - Physician Administere d (J1030) 2023-07 0 13:58: 15 No [id number] 20mg 20 mg, Physician Administer ed, ONCE, 1 dose, On Wed05/10/24 at 1200 Cyndi perez Gabapentin 100 MG oral Capsule 2023-07 0 00:00: 00 09-22 00:00 :00 No 100mg Q.97362127 [id number] 3D Take 1 capsule (100 mg total) by mouth 3 times daily. Cyndi perez Sofosbuvir- Velpatasvir (Epclusa) 400-100 MG oral Tablet 2023-07 0-17 00:00: 00 11-28 00:00 :00 No [id number] 400mg QD Take 400 mg by mouth daily. Cyndi perez Ibuprofen (MOTRIN OR) 2023-07 0- 11:00: 32 Yes 200mg Take 200 mg by mouth as needed. Cyndi perez Ibuprofen (MOTRIN OR) 2023-07 0 09:41: 45 Yes 200mg Take 200 mg by mouth as needed. Cyndi perez Methylpredn isolone Acetate (Depo-Medro l) 40 mg/ml - Physician Administere d (J1030) 03-10 08:34: 45 No [id number] 40mg 40 mg, Physician Administer ed, ONCE, 1 dose, On Wed03/10/24 at 0845 Cyndi perez Ibuprofen (MOTRIN OR) 03-10 08:04: 11 Yes 200mg Take 200 mg by mouth as needed. Cyndi perez Tramadol HCl (ULTRAM) 50 MG oral Tablet 03-10 00:00: 00 Yes [id number] 50mg Q.15161893 [id number] 3D Take 1 tablet (50 mg total) by mouth every 8 hours as needed for pain PLEASE SEE ATTACHED FOR DETAILED DIRECTIONS . Cyndi perez Trazodone HCl 100 MG oral Tablet 03-03 00:00: 00 Yes [id number] 100mg QD TAKE 1 TABLET BY MOUTH EVERY DAY AT NIGHT Cyndi perez Ibuprofen (MOTRIN OR) 02-07 13:57: 06 Yes 200mg Take 200 mg by mouth as needed. Cyndi perez Trazodone HCl 100 MG oral Tablet 02-07 00:00: 00 Yes [id number] 100mg QD Take 1 tablet (100 mg total) by mouth nightly. Cyndi perez methylPREDN ISolone 4 MG oral Tablet Therapy Pack 02-07 00:00: 00 04-19 00:00 :00 No [id number] 1{galen} Take 1 galen by mouth See Admin Instructio ns Use as directed. Cyndi perez Tramadol HCl (ULTRAM) 50 MG oral Tablet 02-07 00:00: 00 03-10 00:00 :00 No [id number] 50mg Q.[id number] 3D Take 1 tablet (50 mg total) by mouth every 8 hours as needed for pain PLEASE SEE ATTACHED FOR DETAILED DIRECTIONS . Cyndi perez ibuprofen (IBU) tablet 600 mg 02-01 23:45: 00 02-01 23:40 :00 No 600mg 600 mg, Oral, ONCE, 1 dose, On Wed02/02/24 at 1845, [facility] phenazopyri dine (PYRIDIUM) tablet 200 mg 02-01 23:30: 00 02-01 23:40 :00 No 200mg 200 mg, Oral, ONCE, 1 dose, On Wed02/02/24 at 1830, [facility] NaCl 0.9% (NS) bolus infusion 1,000 mL 02-01 22:00: 00 02-01 23:00 :00 No 1000mL at 999 mL/hr, 1,000 mL, IV Piggyback, ONCE, 1 dose, On Wed02/02/24 at 1700, [facility] HYDROcodone -acetaminop hen (NORCO 5) 5-325 mg tablet 1 tablet 02-01 21:15: 00 02-01 21:46 :00 No 1{tbl} 1 tablet, Oral, ONCE, 1 dose, On Wed02/02/24 at 1615, [facility] ondansetron (ZOFRAN (PF)) injection 4 mg 02-01 21:15: 00 02-01 21:49 :00 No 4mg 4 mg, Slow IV Push, ONCE, 1 dose, On Wed02/02/24 at 1615, [facility] Tramadol HCl (ULTRAM) 50 MG oral Tablet 02-01 00:00: 00 02-07 00:00 :00 No See Admin Instructio ns PLEASE SEE ATTACHED FOR DETAILED DIRECTIONS . Cyndi perez Pediatric Multivit-Mi nerals (FLINTSTONE S COMPLETE OR) 12-23 13:02: 24 12-23 00:00 :00 No 2{tbl} Take 2 tablets by mouth daily. Cyndi perez Ibuprofen (MOTRIN OR) 12-23 09:59: 53 Yes 200mg Take 200 mg by mouth as needed. Cyndi perez Trazodone HCl 50 MG oral Tablet -03 00:00: 00 02-07 00:00 :00 No 50mg QD Take 1 tablet (50 mg total) by mouth nightly 1/2 to 3 tablets at bedtime per Dr Maciel on [facility]. Cyndi perez Methylpredn isolone Acetate (Depo-Medro l) 40 mg/ml - Physician Administere d (J1030) 08-27 20:30: 00 08-27 21:05 :00 No [id number] 40mg Cyndi perez Pediatric Multivit-Mi nerals (FLINTSTONE S COMPLETE OR) 08-27 13:57: 36 Yes 2{tbl} Take 2 tablets by mouth daily. Cyndi perez Ibuprofen (MOTRIN OR) 08-27 13:57: 36 Yes 200mg Take 200 mg by mouth as needed. Cyndi perez Pediatric Multivit-Mi nerals (FLINTSTONE S COMPLETE OR) 08-25 10:19: 07 Yes 2{tbl} Take 2 tablets by mouth daily. Cyndi perez Ibuprofen (MOTRIN OR) 08-25 10:19: 07 Yes 200mg Take 200 mg by mouth as needed. Cyndi perez GuanFACINE HCl 1 MG oral TABLET SR 24 HR 08-05 00:00: 00 12-23 00:00 :00 No 1{tbl} Take 1 tablet by mouth at bedtime. Cyndi perez Ibuprofen (MOTRIN OR) 08-03 10:22: 49 Yes 200mg Take 200 mg by mouth as needed. Cyndi perez Pediatric Multivit-Mi nerals (FLINTSTONE S COMPLETE OR) 08-03 10:21: 49 Yes 2{tbl} Take 2 tablets by mouth daily. Cyndi perez Ibuprofen (MOTRIN) 200 MG oral Tablet 07-29 08:39: 08 07-29 00:00 :00 No 100mg Q.25D Take 0.5 tablets (100 mg total) by mouth every 6 hours as needed for pain. Cyndi perez Chlorphen-P henyleph-Ib uprofen (Advil Allergy & Congestion) 4-10-200 MG oral Tablet 07-29 08:39: 02 07-29 00:00 :00 No 1{tbl} Take 1 tablet by mouth 2 times daily. Cyndi perez Amoxicillin -Pot Clavulanate 875-125 MG oral Tablet 07-29 08:38: 59 07-29 00:00 :00 No 1{tbl} Take 1 tablet by mouth 2 times daily. Cyndi perez Pediatric Multivit-Mi nerals (FLINTSTONE S COMPLETE OR) 07-29 08:38: 55 Yes 2{tbl} Take 2 tablets by mouth daily. Cyndi perez Gabapentin 100 MG oral Capsule 07-27 00:00: 00 08-25 00:00 :00 No [id number] 100mg Take 1 capsule (100 mg total) by mouth 3 times daily No driving on medication . Cyndi perez Pediatric Multivit-Mi nerals (FLINTSTONE S COMPLETE OR) 2022-07 14:26: 19 Yes 2{tbl} Take 2 tablets by mouth daily. Cyndi perez Amoxicillin -Pot Clavulanate 875-125 MG oral Tablet 2022-07 14:26: 19 Yes 1{tbl} Take 1 tablet by mouth 2 times daily. Cyndi perez Tramadol HCl (ULTRAM) 50 MG oral Tablet 2022-07 14:26: 19 Yes 50mg Q.25D Take 1 tablet (50 mg total) by mouth every 6 hours as needed for pain But is taking 100 mg at a time instead. Cyndi perez Ibuprofen (MOTRIN) 200 MG oral Tablet 2022-07 14:26: 19 Yes 100mg Q.25D Take 0.5 tablets (100 mg total) by mouth every 6 hours as needed for pain. Cyndi perez Chlorphen-P henyleph-Ib uprofen (Advil Allergy & Congestion) 4-10-200 MG oral Tablet 2022-07 14:26: 19 Yes 1{tbl} Take 1 tablet by mouth 2 times daily. Cyndi Alcaraza ana Tramadol HCl (ULTRAM) 50 MG oral Tablet 2022-07 00:00: 00 12-23 00:00 :00 No [id number] 50mg Q.5D Take 1 tablet (50 mg total) by mouth 2 times daily as needed for pain. Cyndi perez Vital Signs Vital Name Observation Time Observation Value Comments S ource Systolic blood pressure 2024-11-28 18:54:00 132 mm[Hg] Cyndi Lo ld - External Diastolic blood pressure 2024-11-28 18:54:00 83 mm[Hg] Cyndikhalif Whitneyo ld - External Heart rate 2024-11-28 18:54:00 94 /min Aura y Bienvenido - External Body temperature 2024-11-28 18:54:00 36.94 Nel Cyndi Faria - External Respiratory rate 2024-11-28 18:54:00 16 /min Cyndi Whitneyold - External Body height 2024-11-28 18:54:00 175.3 cm Suha ey Seybold - External Body weight 2024-11-28 18:54:00 70.761 kg Suha ey Seybold - External BMI 2024-11-28 18:54:00 23.04 kg/m2 Suha ey Seybold - External Body weight 2024-11-28 16:29:00 71.215 kg Suha ey Seybold - External BMI 2024-11-28 16:29:00 23.18 kg/m2 Suha ey Seybold - External Body weight 2024-09-22 18:44:00 69.4 kg Suha ey Seybold - External BMI 2024-09-22 18:44:00 22.59 kg/m2 Suha ey Seybold - External HEIGHT 2024-08-08 08:10:00 175.3 cm WEIGHT 2024-08-08 08:10:00 67.223 kg HEIGHT 2024-08-03 15:45:00 175.3 cm WEIGHT 2024-08-03 15:45:00 65.772 kg Systolic blood pressure 2024-05-10 16:15:00 130 mm[Hg] Cyndi Seybo ld - External Diastolic blood pressure 2024-05-10 16:15:00 86 mm[Hg] Cyndi Seybo ld - External Body weight 2024-05-10 16:15:00 65.772 kg Suha ey Seybold - External BMI 2024-05-10 16:15:00 21.41 kg/m2 Suha ey Seybold - External Systolic blood pressure 2024-04-19 16:00:00 137 mm[Hg] Cyndi Seybo ld - External Diastolic blood pressure 2024-04-19 16:00:00 84 mm[Hg] Cyndi Seybo ld - External Heart rate 2024-04-19 16:00:00 80 /min Kelse y Seybold - External Body temperature 2024-04-19 16:00:00 36.72 Nel Cyndi Seybold - External Respiratory rate 2024-04-19 16:00:00 16 /min Cyndi Seybold - External Body height 2024-04-19 16:00:00 175.3 cm Suha ey Seybold - External Body weight 2024-04-19 16:00:00 66.679 kg Suha ey Seybold - External BMI 2024-04-19 16:00:00 21.71 kg/m2 Suha ey Seybold - External Systolic blood pressure 2024-04-11 14:41:00 142 mm[Hg] Cyndi Seybo ld - External Diastolic blood pressure 2024-04-11 14:41:00 87 mm[Hg] Cyndi Seybo ld - External Heart rate 2024-04-11 14:41:00 74 /min Kelse y Seybold - External Body weight 2024-04-11 14:41:00 66.679 kg Suha ey Seybold - External BMI 2024-04-11 14:41:00 21.71 kg/m2 Suha ey Seybold - External Systolic blood pressure 2024-03-10 13:03:00 143 mm[Hg] Cyndi Seybo ld - External Diastolic blood pressure 2024-03-10 13:03:00 90 mm[Hg] Cyndi Seybo ld - External Heart rate 2024-03-10 13:03:00 87 /min Kelse y Seybold - External Body height 2024-03-10 13:03:00 175.3 cm Suha mejia Seybold - External Body weight 2024-03-10 13:03:00 64.864 kg Suha ey Seybold - External BMI 2024-03-10 13:03:00 21.12 kg/m2 Suha ey Seybold - External Systolic blood pressure 2024-02-08 18:54:00 117 mm[Hg] Cyndi Malcolmybo ld - External Diastolic blood pressure 2024-02-08 18:54:00 78 mm[Hg] Cyndi Malcolmybo ld - External Heart rate 2024-02-08 18:54:00 86 /min Aura y Seybold - External Body temperature 2024-02-08 18:54:00 36.83 Nel Cyndi Malcolmybold - External Respiratory rate 2024-02-08 18:54:00 16 /min Cyndi Malcolmybold - External Body height 2024-02-08 18:54:00 175.3 cm Suha mejia Seybold - External Body weight 2024-02-08 18:54:00 66.225 kg Suha mejia Seybold - External BMI 2024-02-08 18:54:00 21.56 kg/m2 Suha mejia Seybold - External Oxygen saturation in Arterial blood by Pulse oximetry 2024-02-08 18:54:00 97 /min Cyndi Whitneyo ld - External Systolic blood pressure 2024-02-02 23:40:00 142 mm[Hg] [facility] Diastolic blood pressure 2024-02-02 23:40:00 72 mm[Hg] [facility] Heart rate 2024-02-02 23:40:00 72 /min [facility] 2024-02-02 23:40:00 36.61 Nel [facility] Respiratory rate 2024-02-02 23:40:00 14 /min [facility] Oxygen saturation in Arterial blood by Pulse oximetry 2024-02-02 23:40:00 99 /min [facility] Body height 2024-02-02 21:00:00 175.3 cm [facility] Body weight 2024-02-02 21:00:00 58.968 kg [facility] BMI 2024-02-02 21:00:00 19.20 kg/m2 [facility] Systolic blood pressure 2023-12-24 14:57:00 118 mm[Hg] Cyndi Seybo ld - External Diastolic blood pressure 2023-12-24 14:57:00 70 mm[Hg] Cyndi Malcolmybo ld - External Heart rate 2023-12-24 14:57:00 101 /min Kelse y Seybold - External Body temperature 2023-12-24 14:57:00 37.11 Nel Cyndi Seybold - External Respiratory rate 2023-12-24 14:57:00 16 /min Cyndi Seybold - External Body height 2023-12-24 14:57:00 175.3 cm Suha ey Seybold - External Body weight 2023-12-24 14:57:00 65.772 kg Suha ey Seybold - External BMI 2023-12-24 14:57:00 21.41 kg/m2 Suha ey Seybold - External Oxygen saturation in Arterial blood by Pulse oximetry 2023-12-24 14:57:00 97 /min Cyndi Seybo ld - External Systolic blood pressure 2023-08-27 19:57:00 126 mm[Hg] Cyndi Seybo ld - External Diastolic blood pressure 2023-08-27 19:57:00 93 mm[Hg] Cyndi Seybo ld - External Heart rate 2023-08-27 19:57:00 87 /min Isaiahse y Seybold - External Body weight 2023-08-27 19:57:00 67.586 kg Suha ey Seybold - External BMI 2023-08-27 19:57:00 22.00 kg/m2 Suha ey Seybold - External Body temperature 2023-08-25 16:15:00 36.44 Nel Cyndi Seybold - External Respiratory rate 2023-08-25 16:15:00 16 /min Cyndi Seybold - External Body height 2023-08-25 16:15:00 175.3 cm Suha ey Seybold - External Body weight 2023-08-25 16:15:00 66.225 kg Suha ey Seybold - External BMI 2023-08-25 16:15:00 21.56 kg/m2 Suha ey Seybold - External Systolic blood pressure 2023-08-25 16:15:00 120 mm[Hg] Cyndi Seybo ld - External Diastolic blood pressure 2023-08-25 16:15:00 78 mm[Hg] Cyndi Seybo ld - External Heart rate 2023-08-25 16:15:00 74 /min Kelse y Seybold - External Systolic blood pressure 2023-08-03 16:16:00 136 mm[Hg] Cyndi Seybo ld - External Diastolic blood pressure 2023-08-03 16:16:00 82 mm[Hg] Cyndi Seybo ld - External Heart rate 2023-08-03 16:16:00 80 /min Kelse y Seybold - External Body temperature 2023-08-03 16:16:00 36.61 Nel Cyndi Seybold - External Respiratory rate 2023-08-03 16:16:00 16 /min Cyndi Seybold - External Body height 2023-08-03 16:16:00 175.3 cm Suha ey Seybold - External Body weight 2023-08-03 16:16:00 67.586 kg Suha ey Seybold - External BMI 2023-08-03 16:16:00 22.00 kg/m2 Suha ey Seybold - External Oxygen saturation in Arterial blood by Pulse oximetry 2023-08-03 16:16:00 98 /min Cyndi Seybo ld - External Systolic blood pressure 2023-05-19 20:22:00 136 mm[Hg] Cyndi Seybo ld - External Diastolic blood pressure 2023-05-19 20:22:00 82 mm[Hg] Cyndi Seybo ld - External Heart rate 2023-05-19 20:22:00 68 /min Kelse y Seybold - External Body temperature 2023-05-19 20:22:00 36.22 Nel Cyndi Seybold - External Respiratory rate 2023-05-19 20:22:00 18 /min Cyndi Seybold - External Body height 2023-05-19 20:22:00 175.3 cm Suha ey Seybold - External Body weight 2023-05-19 20:22:00 68.72 kg Suha ey Seybold - External BMI 2023-05-19 20:22:00 22.37 kg/m2 Suha mejia Sestanleyold - External Oxygen saturation in Arterial blood by Pulse oximetry 2023-05-19 20:22:00 99 /min Cyndi Lo ld - External Procedures Procedure Date / Time Performed Performing Clinician Source THUMB CARPOMETACARPAL JOINT ARTHROPLASTY: TRAPEZIECTOMY WITH LIGAMENT RECONSTRUCTION AND/OR SUSPENSION WITH INTERPOSITIONAL TENDON TRANSFER 2025-03-15 08:55:00 Ирина Piedra - External UA/M WITH CULTURE REFLEX 2025-02-15 00:00:00 Cyndi Faria - External HAND LEFT 3 VIEWS 2024-09-22 19:35:16 FuadAlok - External ELBOW LEFT 3 VIEWS 2024-09-22 19:33:36 FuadAlok - External COMP. METABOLIC PANEL ([id number]) 2024-02-02 22:42:00 Cole Arreola [facility] CBC WITH DIFF 2024-02-02 21:46:00 Cole Arreola [facility] URINALYSIS 2024-02-02 21:46:00 Cole Arreola [facility] Plan of Care Planned Activity Planned Date Details Comments Source Encounters Start Date/Time End Date/Time Encounter Type Admission Type Attending Clinicians Care Facility Care Department Encounter ID Source 2025-04-24 11:00:00 2025-04-24 11:00:00 Outpatient ИРИНА PIEDRA [id number] Cyndi Faria 2025-03-30 08:30:00 2025-03-30 08:30:00 Outpatient ИРИНА PIEDRA [id number] Cyndi Faria 2025-03-15 08:55:00 2025-03-15 08:55:00 Outpatient ИРИНА PIEDRA [id number] Cyndi Faria 2025-03-11 00:00:00 2025-03-11 00:00:00 Outpatient DIEUDONNE CINTRON [id number] Cyndi Faria 2025-03-06 00:00:00 2025-03-06 00:00:00 Outpatient MD CYNDI QUINTANILLA [id number] Cyndi Seybold 2025-02-15 13:30:00 2025-02-15 13:30:00 Outpatient LAB90 CYNDI HESS [id number] Cyndi Seybold 2025-02-15 10:15:00 2025-02-15 10:15:00 Outpatient CUCA MONTANEZ CYNDI HESS [id number] Cyndi Seybold 2025-02-12 00:00:00 2025-02-12 00:00:00 Outpatient ALOK MERIDA CYNDI HESS [id number] Cyndi Seybold 2025-02-07 14:10:00 2025-02-07 14:10:00 Outpatient ИРИНА PIEDRA [id number] Cyndi Seybold 2025-01-16 11:00:00 2025-01-16 11:00:00 Outpatient ИРИНА PIEDRA [id number] Cyndi Seybold 2024-12-29 14:30:00 2024-12-29 14:30:00 Outpatient CYNDI HESS [id number] Cyndi Seybold 2024-12-08 13:10:00 2024-12-08 13:10:00 Outpatient OLIVE ALLISONHEN CYNDI HESS [id number] Cyndi Seybold 2024-11-30 00:00:00 2024-11-30 00:00:00 Outpatient JONH PHILLIPS [id number] Cyndi Seybold 2024-11-28 14:55:00 2024-11-28 14:55:00 Outpatient LAB39 CYNDI HESS [id number] Cyndi Seybold 2024-11-28 14:15:00 2024-11-28 14:15:00 Outpatient JONH PHILLIPS [id number] Cyndi Seybold 2024-11-28 10:50:00 2024-11-28 10:50:00 Outpatient ИРИНА PIEDRA [id number] Cyndi Seybold 2024-11-28 00:00:00 2024-11-28 00:00:00 Outpatient JONH PHILLIPS [id number] Cyndi Seybold 2024-11-23 00:00:00 2024-11-23 00:00:00 Outpatient MD CYNDI QUINTANILLA [id number] [facility] 2024-11-21 13:30:00 2024-11-21 13:30:00 Outpatient AKSHAT CRUZ [id number] [facility] 2024-11-17 13:45:00 2024-11-17 13:45:00 Outpatient LAB90 CYNDI HESS [id number] [facility] 2024-11-17 11:00:00 2024-11-17 11:00:00 Outpatient ERA ALLISON [id number] [facility] 2024-11-08 11:40:00 2024-11-08 11:40:00 Outpatient CYNDI HESS [id number] [facility] 2024-11-08 11:30:00 2024-11-08 11:30:00 Outpatient AKSHAT CRUZ [id number] [facility] 2024-11-07 00:00:00 2024-11-07 00:00:00 Outpatient JONH PHILLIPS [id number] [facility] 2024-11-03 00:00:00 2024-11-03 00:00:00 Outpatient MD CYNDI QUINTANILLA [id number] [facility] 2024-11-01 10:50:00 2024-11-01 10:50:00 Outpatient ИРИНА PIEDRA [id number] [facility] 2024-10-27 13:10:00 2024-10-27 13:10:00 Outpatient ERA ALLISON [id number] [facility] 2024-10-25 10:50:00 2024-10-25 10:50:00 Outpatient ИРИНА PIEDRA [id number] [facility] 2024-10-18 00:00:00 2024-10-18 00:00:00 Outpatient ALOK MERIDA [id number] [facility] 2024-10-10 13:10:00 2024-10-10 13:10:00 Outpatient ERA ALLISON CYNDI HESS [id number] [facility] 2024-10-05 00:00:00 2024-10-05 00:00:00 Outpatient ERA ALLISON CYNDI HESS [id number] [facility] 2024-09-22 14:25:00 2024-09-22 14:25:00 Outpatient CYNDI HESS [id number] [facility] 2024-09-22 14:20:00 2024-09-22 14:20:00 Outpatient CYNDI HESS [id number] [facility] 2024-09-22 13:45:00 2024-09-22 13:45:00 Outpatient FUADALOK Crooks CYNDI HESS [id number] [facility] 2024-09-18 11:00:00 2024-09-18 11:00:00 Outpatient RITO CHRISTINE CYNDI HESS [id number] [facility] 2024-09-08 09:15:00 2024-09-08 09:15:00 Outpatient BRENDA ADRIANFELY HESS [id number] [facility] 2024-09-06 00:00:00 2024-09-06 00:00:00 Outpatient DIEUDONNE CINTRON [id number] [facility] 2024-08-22 00:00:00 2024-08-22 00:00:00 Outpatient JONH PHILLIPS [id number] [facility] 2024-08-14 11:25:00 2024-08-14 11:25:00 Outpatient LABWilliam HESS [id number] [facility] 2024-08-14 00:00:00 2024-08-14 00:00:00 Outpatient JONH PHILLIPS [id number] [facility] 2024-08-11 00:00:00 2024-08-11 00:00:00 Outpatient RICARDA SARMIENTO [id number] [facility] 2024-08-09 00:00:00 2024-08-09 00:00:00 Outpatient TORSTEN, [facility]IC[facility]DA [facility] [id number] [facility] 2024-08-08 14:47:29 2024-08-08 14:47:29 Outpatient EMORY CONTRERAS [facility] [id number] [facility] 2024-08-08 09:07:39 2024-08-08 09:07:39 Outpatient NITIN POTTS SLERenny [facility] [id number] [facility] 2024-08-07 00:00:00 2024-08-07 00:00:00 Outpatient CESAR RUSSELL CYNDI HESS [id number] [facility] 2024-08-03 00:00:00 2024-08-03 00:00:00 Outpatient NITIN POTTS SLE SLE [id number] [facility] 2024-07-26 14:30:00 2024-07-26 14:30:00 Outpatient ИРИНА PIEDRA [id number] [facility] 2024-07-26 11:30:00 2024-07-26 11:30:00 Outpatient JONH PHILLIPS [id number] [facility] 2024-07-26 00:00:00 2024-07-26 00:00:00 Outpatient CYNDI HESS [id number] [facility] 2024-07-11 10:40:00 2024-07-11 10:40:00 Outpatient ИРИНА PIEDRA [id number] [facility] 2024-06-30 00:00:00 2024-06-30 00:00:00 Outpatient JOHN PHILLIPS [id number] [facility] 2024-06-30 00:00:00 2024-06-30 00:00:00 Outpatient CYNDI HESS [id number] [facility] 2024-06-28 09:00:00 2024-06-28 09:00:00 Outpatient CYNDI HESS [id number] [facility]di [facility] 2024-06-13 00:00:00 2024-06-13 00:00:00 Outpatient JONH PHILLIPS [id number] [facility] 2024-06-12 00:00:00 2024-06-12 00:00:00 Outpatient ИРИНА PIEDRA CYNDI [id number] [facility] 2024-06-11 00:00:00 2024-06-11 00:00:00 Outpatient ИРИНА PIEDRA CYNDI HESS [id number] [facility] 2024-06-06 11:00:00 2024-06-06 11:00:00 Outpatient ИРИНА PIEDRA CYNDI HESS [id number] [facility] 2024-05-29 00:00:00 2024-05-29 00:00:00 Outpatient ИРИНА PIEDRA CYNDI HESS [id number] [facility] 2024-05-17 10:30:00 2024-05-17 10:30:00 Outpatient CHEKOJACQUELYN CYNDI HESS [id number] [facility] 2024-05-15 15:35:00 2024-05-15 15:35:00 Outpatient CYNDI HESS [id number] [facility] 2024-05-15 10:00:00 2024-05-15 10:00:00 Outpatient CONFERENCE, [facility] CYNDI HESS [id number] [facility] 2024-05-15 00:00:00 2024-05-15 00:00:00 Outpatient CONFERENCE, [facility] CYNDI HESS [id number] [facility] 2024-05-15 00:00:00 2024-05-15 00:00:00 Outpatient DIEUDONNE CINTRON [id number] [facility] 2024-05-15 00:00:00 2024-05-15 00:00:00 Outpatient JONH PHILLIPS [id number] [facility] 2024-05-10 13:55:00 2024-05-10 13:55:00 Outpatient CYNDI HESS [id number] [facility]di [facility] 2024-05-10 13:40:00 2024-05-10 13:40:00 Outpatient CYNDI HESS [id number] [facility] 2024-05-10 13:00:00 2024-05-10 13:00:00 Outpatient CYNDI HESS [id number] [facility] 2024-05-10 11:00:00 2024-05-10 11:00:00 Outpatient NOLLA, ИРИНА CYNDI HESS [id number] Cyndi Seybold 2024-05-10 09:45:00 2024-05-10 09:45:00 Outpatient BK PORTER CYNDI HESS [id number] Cyndi Sey[facility] 2024-05-10 08:15:00 2024-05-10 08:15:00 Outpatient JACQUELYN STILL CYNDI HESS [id number] Cyndi Seybold 2024-05-10 00:00:00 2024-05-10 00:00:00 Outpatient GERMAN BK HESS [id number] Cyndi Seybold 2024-05-03 13:40:00 2024-05-03 13:40:00 Outpatient CYNDI HESS [id number] Cyndi Seybold 2024-05-03 13:00:00 2024-05-03 13:00:00 Outpatient CYNDI HESS [id number] [facility]di Sey[facility] 2024-05-03 11:40:00 2024-05-03 11:40:00 Outpatient LAB90 CYNDI HESS [id number] Cyndi Seybold 2024-05-03 09:45:00 2024-05-03 09:45:00 Outpatient CYNDI HESS [id number] Cyndi Seybold 2024-05-03 09:45:00 2024-05-03 09:45:00 Outpatient GERMAN BK HESS [id number] Cyndi Seybold 2024-05-03 09:15:00 2024-05-03 09:15:00 Outpatient PORTER, BK HESS [id number] Cyndi Seybold 2024-05-03 08:00:00 2024-05-03 08:00:00 Outpatient CYNDI HESS [id number] Cyndi Seybold 2024-05-02 00:00:00 2024-05-02 00:00:00 Outpatient JONH PHILLIPS [id number] [facility]di Seybold 2024-04-29 00:00:00 2024-04-29 00:00:00 Outpatient JONH PHILLIPS [id number] [facility] Sey[facility] 2024-04-28 00:00:00 2024-04-28 00:00:00 Outpatient ИРИНА PIEDRA CYNDI HESS [id number] Cyndi Seybold 2024-04-27 09:14:00 2024-04-27 09:14:00 Outpatient ИРИНА PIEDRA CYNDI HESS [id number] [facility]di Sey[facility] 2024-04-27 00:00:00 2024-04-27 00:00:00 Outpatient JONH PHILLIPS [id number] [facility]di Sey[facility] 2024-04-20 11:40:00 2024-04-20 11:40:00 Outpatient CONFERENCE, [facility] CYNDI HESS [id number] Cyndi Seybold 2024-04-20 00:00:00 2024-04-20 00:00:00 Outpatient MD CYNDI QUINTANILLA [id number] Cyndi Seybold 2024-04-20 00:00:00 2024-04-20 00:00:00 Outpatient CONFERENCE, [facility] CYNDI HESS [id number] Cyndi Seybold 2024-04-19 15:20:00 2024-04-19 15:20:00 Outpatient LAB39 CYNDI HESS [id number] Cyndi Seybold 2024-04-19 14:15:00 2024-04-19 14:15:00 Outpatient CYNDI HESS [id number] [facility] Sey[facility] 2024-04-19 13:00:00 2024-04-19 13:00:00 Outpatient YCNDI HESS [id number] Cyndi Seybold 2024-04-19 11:00:00 2024-04-19 11:00:00 Outpatient JONH PHILLIPS [id number] Cyndi Seybold 2024-04-11 10:55:00 2024-04-11 10:55:00 Outpatient LAB39 CYNDI HESS [id number] Cyndi Seybold 2024-04-11 09:30:00 2024-04-11 09:30:00 Outpatient ИРИНА PIEDRA CYNDI HESS [id number] Cyndi Seybold 2024-04-11 00:00:00 2024-04-11 00:00:00 Outpatient CYNDI HESS [id number] Cyndi Seybold 2024-03-23 13:30:00 2024-03-23 13:30:00 Outpatient CYNDI HESS [id number] [facility] 2024-03-23 12:20:00 2024-03-23 12:20:00 Outpatient CYNDI HESS [id number] [facility] 2024-03-14 00:00:00 2024-03-14 00:00:00 Outpatient CESAR RUSSELL CYNDI HESS [id number] [facility] 2024-03-10 08:20:00 2024-03-10 08:20:00 Outpatient ALANA FABYCHANG [id number] [facility] 2024-03-08 13:40:00 2024-03-08 13:40:00 Outpatient ALANAFABY Dobbs CYNDI HESS [id number] [facility] 2024-03-07 12:20:00 2024-03-07 12:20:00 [facility] [id number] [facility]24-[facility]-03 00:00:00 2024-03-03 00:00:00 Outpatient JAVIJOEDIEUDONNEJONNATHAN HESS [id number] [facility] 2024-03-02 00:00:00 2024-03-02 00:00:00 Outpatient JAVI DIEUDONNEJONNATHAN HESS [id number] [facility] 2024-02-23 14:20:00 2024-02-23 14:20:00 Outpatient ALANAFABY [facility]NDI HESS [id number] [facility] 2024-02-11 12:35:00 2024-02-11 12:35:00 Outpatient LAB90 CYNDI HESS [id number] [facility] 2024-02-08 14:45:00 2024-02-08 14:45:00 Outpatient LAB47 [facility] HESS [id number] [facility] 2024-02-08 13:45:00 2024-02-08 13:45:00 Outpatient JAVI DIEUDONNEJONNATHAN HESS [id number] [facility]24-[facility]-02 16:05:00 2024-02-02 19:00:00 Emergency COLE MOSELEY MARYANN [facility] ERT [id number] [facility] 2024-02-02 16:05:00 2024-02-02 19:00:00 Emergency COLE MOSELEY MARYANN [facility] ERT [id number] [facility] 2024-02-02 16:05:00 2024-02-02 19:00:00 Emergency Cole Arreola [facility] [id number] [facility] 2024-01-24 00:00:00 2024-01-24 00:00:00 Outpatient CHRISTINE VERAS [id number] [facility] 2024-01-24 00:00:00 2024-01-24 00:00:00 Outpatient [facility]ST[facility] VER[facility] [id number] [facility] 2023-12-28 13:30:00 2023-12-28 13:30:00 Outpatient LEI CONRAD [id number] [facility] 2023-12-24 10:00:00 2023-12-24 10:00:00 Outpatient CESAR RUSSELL [id number] [facility] 2023-12-22 13:00:00 2023-12-22 13:00:00 Outpatient CYNDI HESS [id number] [facility] 2023-12-10 08:00:00 2023-12-10 08:00:00 Outpatient LEI CONRAD [id number] [facility] 2023-12-06 00:00:00 2023-12-06 00:00:00 Outpatient [facility]AR [facility]USSELL [id number] [facility] 2023-11-29 13:10:00 2023-11-29 13:10:00 Outpatient ИРИНА PIEDRA [id number] [facility] 2023-11-19 14:00:00 2023-11-19 14:00:00 Outpatient JONH PHILLIPS [id number] [facility] 2023-11-16 13:00:00 2023-11-16 13:00:00 Outpatient CYNDI HESS [id number] [facility] 2023-10-12 15:00:00 2023-10-12 15:00:00 Outpatient CYNDI HESS [id number] [facility] 2023-09-16 13:30:00 2023-09-16 13:30:00 Outpatient CYNDI HESS [id number] [facility] 2023-09-16 09:30:00 2023-09-16 09:30:00 Outpatient DANA DRE CYNDI HESS [id number] [facility] 2023-09-01 00:00:00 2023-09-01 00:00:00 Outpatient MICHEAL CESAR CYNDI HESS [id number] [facility] 2023-08-27 14:15:00 2023-08-27 14:15:00 Outpatient ALOK MERIDA [id number] [facility] 2023-08-26 13:30:00 2023-08-26 13:30:00 Outpatient LYNN PRAJAPATI [id number] [facility] 2023-08-26 00:00:00 2023-08-26 00:00:00 Outpatient CESAR RUSSELL CYNDI HESS [id number] [facility] 2023-08-25 11:45:00 2023-08-25 11:45:00 Outpatient LAB90 CYNDI HESS [id number] [facility] 2023-08-25 10:30:00 2023-08-25 10:30:00 Outpatient CESAR RUSSELL CYNDI HESS [id number] [facility] 2023-08-24 13:10:00 2023-08-24 13:10:00 Outpatient AG BOSE [id number] [facility] 2023-08-24 13:00:00 2023-08-24 13:00:00 Outpatient LYNN PRAJAPATI [id number] [facility] 2023-08-20 11:00:00 2023-08-20 11:00:00 Outpatient ERA ALLISON CYNDI HESS [id number] [facility] 2023-08-16 00:00:00 2023-08-16 00:00:00 Outpatient CESAR RUSSELL CYNDI HESS [id number] [facility] 2023-08-13 09:30:00 2023-08-13 09:30:00 Outpatient CESAR RUSSELL CYNDI HESS [id number] [facility] 2023-08-11 00:00:00 2023-08-11 00:00:00 Outpatient CESAR RUSSELL CYNDI HESS [id number] [facility] 2023-08-09 11:05:00 2023-08-09 11:05:00 Outpatient CYNDI HESS [id number] [facility] 2023-08-09 00:00:00 2023-08-09 00:00:00 Outpatient CESAR RUSSELL [facility]NDI HESS [id number] [facility] 2023-08-03 11:20:00 2023-08-03 11:20:00 Outpatient LABWilliam CYNDI HESS [id number] [facility] 2023-08-03 10:30:00 2023-08-03 10:30:00 Outpatient CESAR RUSSELL CYNDI HESS [id number] [facility] 2023-08-03 00:00:00 2023-08-03 00:00:00 Outpatient CYNDI HESS [id number] [facility] 2023-07-29 09:00:00 2023-07-29 09:00:00 Outpatient LIYAH PORRASSHANA CYNDI HESS [id number] [facility] 2023-07-27 14:00:00 2023-07-27 14:00:00 Outpatient CESAR RUSSELL CYNDI HESS [id number] [facility] 2023-07-24 00:00:00 2023-07-24 00:00:00 Outpatient CHRISTINE VERAS [id number] [facility] 2023-07-22 15:30:00 2023-07-22 15:30:00 Outpatient CESAR RUSSELL CYNDI HESS [id number] [facility] 2023-05-19 14:30:00 2023-05-19 14:30:00 Outpatient CESAR RUSSELL CYNDI [id number] [facility] 2023-05-19 00:00:00 2023-05-19 00:00:00 Outpatient CHRISTINE VERAS CYNDI [id number] [facility] 2023-05-19 00:00:00 2023-05-19 00:00:00 Outpatient TOBI JACKSON CYNDI [id number] [facility] 2022-09-30 04:41:00 2022-10-01 08:12:00 Emergency SARAH RICARDA [facility] [id number] [facility] 2022-09-30 11:00:32 2022-09-30 11:05:55 Emergency GEETHA BRANDY [facility] [id number] [facility] 2022-09-30 08:34:42 2022-09-30 08:34:42 Emergency GEETHA [facility] [id number] [facility] Results Test Description Test Time Test Comments Results Resul t Comments Source HAND LEFT 3 VIEWS 2024-09-22 19:37:04 HISTORY: ?left hand painIMAGES: ? 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 [facility] - External ELBOW 3 VIEWS LEFT 2024-09-22 19:35:21 HISTORY: left elbowIMAGES: ? Three views, ?left elbowFINDINGS: No diagnostic abnormality is seen within the left elbow joint. There appears to be soft tissue swelling along the medial aspect of the olecranon. [facility] CYTOLOGY 2024-08-10 15:05:27 Medical Cytology Report Case: [id number] Authorizing Provider: Nitin Booth MD Collected: 08/08/2024 09:29 AM Ordering Location: [address] Received: 08/09/2024 09:45 AM Service Pathologist: Henry Null MD Specimen: Common Bile Duct COMMON BILE DUCT, ASPIRATE (CYTOSPINS): - NEGATIVE FOR MALIGNANCY - Few benign appearing columnar epithelial cells Signing Pathologist Direct Phone Line: [phone] nically signed by Henry Null MD on 08/10/2024 at 3:05 [id number] y.o. F being evaluated for the ERCP, with cholangioscopy due to abnormal findings on diagnostic imaging of digestive tract. PMH: hepatitis C.COMMON BILE DUCT ASPIRATEA. Common Bile DuctReceived 40 mls in cytorich red; prepared 4 cytospins, not enough material for cell block.Performed.[facility], Department of Pathology, [address] [place] [id number], [facility], Department of Pathology, [address] [place] [address], [facility], Department of [facility]ology, [address] [place] [address], HIGH SENSITIVITY TROPONIN [id number] 16:50:18* Test Item Value Reference Range Interpretation Comme nts HIGH SENSITIVITY TROPONIN I (test code = 8111839) < pg/ml <14 The Alinity ci High Sensitivity Troponin-I results should be used in conjunction with other diagnostic information such as ECG, clinical observations and information, and patient symptoms to aid in the diagnosis of [place].BASIC METABOLIC [id number] 16:25:30* Test Item Value Reference Range Interpretation Comme nts SODIUM (BEAKER) (test code = 381) 135 meq/L 136-145 L POTASSIUM (BEAKER) (test code = 379) 4.3 meq/L 3.4-5.1 CHLORIDE (BEAKER) (test code = 382) 105 meq/L 98-107 CO2 (BEAKER) (test code = 355) 23 meq/L 22-29 BLOOD UREA NITROGEN (BEAKER) (test code = 354) 9 mg/dL 10-20 L CREATININE (BEAKER) (test code = 358) 0.60 mg/dL 0.57-1.11 GLUCOSE RANDOM (BEAKER) (test code = 652) 115 mg/dL 70-105 H CALCIUM (BEAKER) (test code = 697) 8.2 mg/dL 8.4-10.2 L EGFR (BEAKER) (test code = 1092) 109 mL/min/1.73 sq m Interpretation of eG FR values Stage Description Result G1 Normal or high >=90 G2 Mildly decreased 60-89 G3a Mildly to moderately 45-59 G3b Moderately to severely 30-44 G4 Severly decreased 15-29 G5 Kidney failure <15Reported eGFR is based on the CKD-EPI 2020 equation that does not use a race coefficientEstimated GFR is not as accurate as Creatinine Clearance in predicting glomerular filtration rate. Estimated GFR is not applicable for dialysis patients [id number] 16:25:30* Test Item Value Reference Range Interpretation Comme nts MAGNESIUM (BEAKER) (test cod e = 627) 1.4 mg/dL 1.6-2.6 L [id number] 16:25:30* Test Item Value Reference Range Interpretation Comme nts LIPASE (BEAKER) (test code = 749) 40 U/L <=60 CBC (HEMOGRAM ONLY)2024-08-08 15:59:13* Test Item Value Reference Range Interpretation Comme nts WHITE BLOOD CELL COUNT (BEAK ER) (test code = 775) 5.0 K/ L 3.5-10.5 RED BLOOD CELL COUNT (BEAKER ) (test code = 761) 3.45 M/ L 3.93-5.22 L HEMOGLOBIN (BEAKER) (test co de = 410) 11.6 GM/DL 11.2-15.7 HEMATOCRIT (BEAKER) (test co de = 411) 35.8 % 34.1-44.9 MEAN CORPUSCULAR VOLUME (WESLEY KER) (test code = 753) 104 fL 79-95 H MEAN CORPUSCULAR HEMOGLOBIN (BEAKER) (test code = 751) 33.6 pg 25.6-32.2 H MEAN CORPUSCULAR HEMOGLOBIN CONC (BEAKER) (test code = 752) 32.4 GM/DL 32.2-35.5 RED CELL DISTRIBUTION WIDTH (BEAKER) (test code = 412) 11.9 % 11.7-14.4 PLATELET COUNT (BEAKER) (jeff t code = 756) 72 K/CU MM 150-450 L MEAN PLATELET VOLUME (BEAKER ) (test code = 754) 10.6 fL 9.4-12.3 NUCLEATED RED BLOOD CELLS (B EAKER) (test code = 413) 0 /100 WBC 0-0 XR CHEST 1 VIEW PORTABLE / [id number] 15:20:28 [facility] : 1975 Sex: FChest AP portableHistory provided: Chest painRadiographically normal-appearing heart and lungs.Electronically Signed By: Javi Singer 15:22 CDTWorkstation Name: [id number] 09:42:52 [facility] : 1975 Sex: FThis is a non- reportable study with no Radiologist dictation. Please refer to your PACS to review images, or Doc Flowsheets for documentation on studies without images. COMP. METABOLIC PANEL 75596)2024-02-02 23:12:51* Test Item Value Reference Range Interpretation Comme nts NA (test code = 4016541052) 138 mmol/L 135-145 K (test code = 2922666639) 4.2 mmol/L 3.5-5.0 CL (test code = 3178758452) 104 mmol/L 98-108 CO2 TOTAL (test code = 2566680620) 29 mmol/L 23-31 AGAP (test code = 8366126988) 5 2-16 BUN (test code = 1883225354) 17 mg/dL 7-23 GLUCOSE (test code = 7102664727) 165 mg/dL 70-110 H CREATININE (test code = 2160-0) 0.80 mg/dL 0.50-1.04 TOTAL BILI (test code = 9761978012) 0.6 mg/dL 0.1-1.1 CALCIUM (test code = 9510337987) 8.5 mg/dL 8.6-10.6 L T PROTEIN (test code = 8741260335) 6.9 g/dL 6.3-8.2 ALBUMIN (test code = 5144243411) 3.4 g/dL 3.5-5.0 L ALK PHOS (test code = 1651179430) 133 U/L 34-122 H ALTv (test code = 1742-6) 136 U/L 5-35 H AST(SGOT) (test code = 6009238515) 118 U/L 13-40 H eGFR (test code = 75686-9) 90.5 mL/min/1.73m2 CKD-EPI eGFR (2020). Assuming creatinine has been stable day-to-day for at least three months, the eGFR indicates Category G1 (>= 90 mL/min/1.73 m2) Lab Interpretation (test code = 38756-4) Abnormal [facility] WITH [id number] 22:23:16* Test Item Value Reference Range Interpretation Comme nts WBC (test code = 6690-2) 3.42 4.30-11.10 L RBC (test code = 789-8) 3.58 3.93-5.25 L HGB (test code = 718-7) 12.3 g/dL 11.6-15.0 HCT (test code = 4544-3) 37.7 % 35.7-45.2 MCV (test code = 787-2) 105.3 fL 80.6-95.5 H MCH (test code = 785-6) 34.4 pg 25.9-32.8 H MCHC (test code = 786-4) 32.6 g/dL 31.6-35.1 RDW-SD (test code = 13388-3) 52.5 fL 39.0-49.9 H RDW-CV (test code = 788-0) 13.4 % 12.0-15.5 PLT (test code = 777-3) 100 166-358 L MPV (test code = 90394-9) 12.2 fL 9.5-12.9 IPF % (test code = 7865881384) 4.9 % 1.3-7.7 Platelet count measured by fluorescence method. NRBC/100 WBC (test code = 8655124698) 0.0 0.0-10.0 NRBC x10^3 (test code = 8800601890) See_Comment [Automated [employer]] The system which generated this result transmitted reference range: 10*3/?L. The reference range was not used to interpret this result as normal/abnormal. GRAN MAT (NEUT) % (test code = 770-8) 65.4 % IMM GRAN % (test code = 9159335622) 0.30 % LYMPH % (test code = 736-9) 23.7 % MONO % (test code = 5905-5) 7.9 % EOS % (test code = 713-8) 1.5 % BASO % (test code = 706-2) 1.2 % GRAN MAT x10^3(ANC) (test code = 4066054976) 2.24 10*3/uL 1.88-7.09 IMM GRAN x10^3 (test code = 7559208319) 0.00-0.06 LYMPH x10^3 (test code = 731-0) 0.81 10*3/uL 1.32-3.29 L MONO x10^3 (test code = 742-7) 0.27 10*3/uL 0.33-0.92 L EOS x10^3 (test code = 711-2) 0.05 10*3/uL 0.03-0.39 BASO x10^3 (test code = 704-7) 0.04 10*3/uL 0.01-0.07 Lab Interpretation (test code = 58803-3) Abnormal [facility] History and Physical Notes Date/Time Note Provider Source 2024-11-28 14:19:43 HPI REFERRING PHYSICIAN: Helena Araiza is a 49 year old female who presents for liver disease Doing well overall Has bloating/ constipation Weight is up Had abnormal mri- then ercp Component Latest Ref Rng 08/14/2024 11/17/2024 ALBUMIN 3.9 - 4.9 g/dL 4.1 4.3 GLOBULIN, TOTAL 1.5 - 4.5 g/dL 3.6 2.7 A/G RATIO 0.7 - 1.7 1.1 BILIRUBIN 0.0 - 1.2 mg/dL 0.7 0.6 ALKALINE PHOSPHATASE, SERUM 44 - 121 IU/L 142 (H) 254 (H) AST (SGOT) 0 - 40 IU/L 84 (H) 95 (H) ALT (SGPT) 0 - 32 IU/L 75 (H) 68 (H) HEPATITIS C QUANTITATION IU/mL HCV Not Detected HCV Not Detected TEST INFORMATION Comment Comment PROTHROMBIN TIME 8.7 - 14.0 Seconds 11.3 INR 0.9 - 1.2 1.1 AFP, SERUM, TUMOR MARKER 0.0 - 6.4 ng/mL 55.8 (H) Legend: (H) H Past Medical History[1] Past Surgical History: Procedure Laterality Date LIGAMENT RECONSTRUCTION OF THE CARPOMETACARPAL JOINT USING A LOCALLY TRANSFERRED TENDON Left 04/27/2024 Performed by Ирина Piedra MD at [facility] VT APPENDECTOMY VT ERCP REMOVE CALCULI/DEBRIS BILIARY/PANCREAS DUCT 08/08/2024 Dr.Dang Booth VT LAPAROSCOPY SURG CHOLECYSTECTOMY VT TOTAL ABDOMINAL HYSTERECT W/WO RMVL TUBE OVARY THUMB CARPOMETACARPAL (BASILAR; [facility]) JOINT INTERPOSITION ARTHROPLASTY Left 04/27/2024 Performed by Ирина Piedra MD at [facility] TUBAL LIGATION Tobacco Use History[2] Social History Substance and Sexual Activity Alcohol Use Yes Alcohol/week: 50.4 oz Types: 84 Cans of beer per week Comment: 12 beers a day Social History Substance and Sexual Activity Drug Use Not Currently Comment: 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 Review of Systems Constitutional: Negative for appetite change, chills, fatigue, fever and unexpected weight change. HENT: Negative for hearing loss and trouble swallowing. Eyes: Negative for visual disturbance. Respiratory: Negative for cough and shortness of breath. Cardiovascular: Negative for chest pain and leg swelling. Gastrointestinal: Negative for abdominal distention, abdominal pain, blood in stool, constipation, diarrhea, nausea and vomiting. Genitourinary: Negative for difficulty urinating. Musculoskeletal: Negative for arthralgias and myalgias. Skin: Negative for rash. Neurological: Negative for seizures and headaches. Hematological: Negative for adenopathy. Does not bruise/bleed easily. Physical Exam Vitals and nursing note reviewed. Constitutional: General: She is not in acute distress. Appearance: She is well-developed. HENT: Head: Normocephalic. Cardiovascular: Rate and Rhythm: Normal rate and regular rhythm. Heart sounds: No murmur heard. No friction rub. No gallop. Pulmonary: Effort: Pulmonary effort is normal. No respiratory distress. Breath sounds: Normal breath sounds. No wheezing or rales. Abdominal: General: Bowel sounds are normal. There is no distension. Palpations: Abdomen is soft. There is no mass. Tenderness: There is no abdominal tenderness. There is no guarding or rebound. Musculoskeletal: Cervical back: Neck supple. Skin: General: Skin is warm and dry. Findings: No rash. Neurological: Mental Status: She is alert and oriented to person, place, and time. Psychiatric: Behavior: Behavior normal. A/P cirrhosis- with increased afp Had eus for biliary tree after mri Check ct- liver Opportunity for questions given. Patient agrees to plan. [1] Past Medical History: Diagnosis Date Alcoholic cirrhosis of liver without ascites (multi HCC) Closed blow-out fracture of left orbital floor (CMS-HCC) Hepatitis C Thrombocytopenia (CMS-HCC) [2] Social History Tobacco Use Smoking Status Every Day Current packs/day: 1.00 Average packs/day: 1 pack/day for 19.0 years (19.0 ttl pk-yrs) Types: Cigarettes Smokeless Tobacco Never [3] Family History Problem Relation Name Age of Onset Atrial fibrillation Mother Stroke Mother Cancer Father Anesthesia Problems Neg Hx [4] Allergies Allergen Reactions Ketorolac Other Migraine and hives Toradol [Ketorolac Tromethamine] Hives and Nausea and Vomiting [5] Outpatient Encounter Medications as of 11/28/2024 Medication Sig Dispense Refill Esomeprazole Magnesium (NexIUM) 40 MG oral Delayed Release Capsule Take 1 capsule (40 mg total) by mouth 2 times daily. 30 capsule 6 Gabapentin 300 MG oral Capsule TAKE 1 CAPSULE BY MOUTH THREE TIMES A DAY 90 capsule 0 Tramadol HCl (ULTRAM) 50 MG oral Tablet Take 1 tablet (50 mg total) by mouth every 6 hours as needed FOR PAIN. Trazodone HCl 100 MG oral Tablet TAKE 1 TABLET BY MOUTH EVERY DAY AT NIGHT 90 tablet 1 Methocarbamol 750 MG oral Tablet Take 1 tablet (750 mg total) by mouth 4 times daily as needed (muscle spasm). 30 tablet 0 Facility-Administered Encounter Medications as of 11/28/2024 Medication Dose Route Frequency Provider Last Rate Last Admin methylPREDNISolone Acetate 20 mg injection 20 mg Physician Administered Once Ирина Piedra MD edicine [facility] 2024-04-19 11:11:03 REFERRING PHYSICIAN: Cesar Russell FNP* HPI Helena Araiza is a 48 year old female current smoker,

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
--- NOTE | 2025-03-27 02:18 | ER ---
Nurse's Notes [facility] Name: Geraldine Araiza Age: 49 yrs Sex: Female : 1975 Arrival Date: 03/27/2025 Time: 02:07 Bed 8 Private MD: Diagnosis: Acute stimulant intoxication, acute generalized pain, delusions secondary to stimulant intoxication Presentation: 03/27 02:09 Chief complaint: EMS states: c/o generalized pain, patient noncompliant with al5 medications. Coronavirus screen: At this time, the client does not indicate any symptoms associated with coronavirus-19. Ebola Screen: No symptoms or risks identified at this time. Initial Sepsis Screen: Does the patient meet any 2 criteria? No. Patient's initial sepsis screen is negative. Does the patient have a suspected source of infection? No. Patient's initial sepsis screen is negative. Risk Assessment: Do you want to hurt yourself or someone else? Patient reports no desire to harm self or others. Onset of symptoms was March 27, 2025. 02:09 Method Of Arrival: EMS: [facility] al5 02:09 Acuity: GERHARD 5 al5 02:09 Care prior to arrival: Medication(s) given: zofran 4 mg, IV initiated. 20 GA, in the al5 left antecubital area, Glucose check: 92. Triage Assessment: 02:10 General: Appears in no apparent distress. uncomfortable, Behavior is calm, cooperative. al5 Pain: Complains of pain in "all over". EENT: No signs and/or symptoms were reported regarding the EENT system. Neuro: Level of Consciousness is awake, alert, obeys commands, Oriented to person, place, time, situation. Cardiovascular: Patient's skin is warm and dry. Respiratory: Airway is patent Respiratory effort is even, unlabored, Respiratory pattern is regular, symmetrical. GI: Abdomen is flat, non-distended. : No signs and/or symptoms were reported regarding the genitourinary system. Derm: Skin is intact, Skin is pink, warm \\T\\ dry. normal. Musculoskeletal: Circulation, motion, and sensation intact. Range of motion: intact in all extremities. 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 - Infectious Disease History:: Denies. - Social history:: Smoking status: Patient reports the use of cigarette tobacco products, Patient/guardian denies using street drugs. - Family history:: not pertinent. Screenin:13 [facility] ED Fall Risk Assessment (Adult) History of falling in the last 3 months, al5 including since admission No falls in past 3 months (0 pts) Confusion or Disorientation No (0 pts) Intoxicated or Sedated No (0 pts) Impaired Gait Yes (1 pt) Mobility Assist Device Used No (0 pt) Altered Elimination No (0 pt) Score/Fall Risk Level 0 - 2 = Low Risk Oriented to surroundings, Maintained a safe environment, Hourly rounding (assess needs \\T\\ fall precautionary measures) done. Abuse screen: Denies threats or abuse. Denies injuries from another. Nutritional screening: No deficits noted. Tuberculosis screening: No symptoms or risk factors identified. Assessment: 02:05 Reassessment: pt stated she wants to go to [facility], and is leaving MD TRUDI in kb4 room at time. Vital Signs: 02:09 BP 120 / 81; Pulse 94; Resp 18; Temp 98.7(O); Pulse Ox 98% on R/A; al5 [place] Coma Score: 02:11 Eye Response: spontaneous(4). Motor Response: obeys commands(6). Verbal Response: sp4 oriented(5). Total: 15. ED Course: 02:08 Patient arrived in ED. al5 02:10 Gallito Alfaro MD is Attending Physician. sp4 02:10 Triage completed. al5 02:10 Arm band placed on right wrist. Patient placed in the treatment room, in view of staff al5 members, on pulse oximetry. 02:10 No provider procedures requiring assistance completed. Maintain EMS IV. Dressing al5 intact. Good blood return noted. Site clean \\T\\ dry. Gauge \\T\\ site: 20G LAC. 02:13 Patient has correct armband on for positive identification. Bed in low position. Call al5 light in reach. 02:14 IV discontinued, intact, bleeding controlled, No redness/swelling at site. Pressure al5 dressing applied. 02:15 Skinner, Sara, RN is Primary Nurse. kb4 02:17 Provided Education on: need for medical attention . kb4 Administered Medications: No medications were administered Medication: 02:13 VIS not applicable for this client. al5 Outcome: :17 Discharge ordered by . sp4 02:17 AMA Left before signing form, kb4 02:17 Condition: stable 02:17 Instructed on need for medical attention 02:18 Patient left the ED. kb4 Signatures: Gallito Alfaro MD MD sp4 Diane Stack RN RN al5 Sara Skinner, RN RN kb4
[2025-03-27 03:17] VITALS: BP 120/81; TEMP 98.7; O2SAT 98
== END 2025-03-27 02:18 | disposition home or self-care (01) ==
LOC: ER 02:07
DX: R52 Pain, unspecified (principal); F15.129 Other stimulant abuse with intoxication, unspecified; F22 Delusional disorders; F17.210 Nicotine dependence, cigarettes, uncomplicated; Z88.5 Allergy status to narcotic agent
CPT/HCPCS: 99283